=== PATIENT | female | born 1935 | race Caucasian/White ===

== ENCOUNTER 2017-12-10 11:09 | Day surgery (SDC) | payer MEDICARE, OTHER ==
[~2017-12-10 11:09] MED LIST: Betamethasone Acetate/Betamethasone Sod Phosphate 30 MG/5 ML MDV ONE; Iopamidol 408 MG/ML 50 ML SDV ONE; Lidocaine 2% 5 ML SDV ONE; Ropivacaine 0.5% 5 MG/ML 30 ML SDV ONE
--- NOTE | 2017-12-10 15:06 | OR ---
SURGEON: Amena Zee D.O. DATE OF PROCEDURE: 12/10/2017 OR STAFF PRESENT: 1. La Lomeli RN. 2. Adán York RN. 3. RT Michelle. WOUND CLASSIFICATION: I. PREOPERATIVE DIAGNOSES: 1. Lumbar spinal stenosis. 2. Lumbar spondylosis. 3. Lumbar degenerative disk disease. 4. Lumbar radiculopathy. POSTOPERATIVE DIAGNOSES: 1. Lumbar spinal stenosis. 2. Lumbar spondylosis. 3. Lumbar degenerative disk disease. 4. Lumbar radiculopathy. PROCEDURES PERFORMED: 1. Caudal epidural steroid injection. 2. Fluoroscopic guidance for needle placement. 3. Local with oral Valium for sedation. SCREENING QUESTIONS: The patient answered "no" to all of the following questions: 1. Are you allergic to latex? 2. Do you have a bleeding disorder? 3. Do you have any current local or systemic infections? 4. Are you taking any anti-inflammatories or blood thinners? 5. Do you have any joint replacements, heart valve replacements, or a pacemaker? DESCRIPTION OF PROCEDURE: The patient had the procedure thoroughly explained including all possible risks, benefits and alternatives. Consent was signed in my clinic indicating understanding and willingness to proceed. The patient presented to [facility] [place] and was escorted to the dressing room to disrobe and change into a hospital gown. Preoperative vital signs were taken and stable. The patient reported that Valium was taken prior to the procedure. The patient was brought back to the procedure room and placed in the prone position on the procedure room table. A pillow was placed under the hips in order to flatten the lumbar lordosis. The back was prepped with ChloraPrep and sterilely draped. All personnel in the operating room were dressed in appropriate attire including surgical scrubs, head and shoe covers. This was to ensure sterility while in the treatment room. During the time fluoroscopy was in use, all personnel in the operating room wore lead reese with thyroid collars. Sterile technique was used throughout the procedure. The patient was awake and conversant throughout the procedure. There was no evidence of infection at the site of needle insertion. Skeletal landmarks were identified under fluoroscopy for the lumbar epidural. Skin was anesthetized with 2% lidocaine with a sterile 27-gauge 1.5 inch needle. Then, a 20-gauge Tuohy epidural needle was placed in the epidural space with loss of resistance technique under fluoroscopic guidance. No heme, cerebrospinal fluid, or paresthesias were noted. Isovue-200 contrast dye was injected in 0.2 cubic centimeter increments and seen to outline the epidural space in both AP and lateral views. There was no intravascular flow pattern observed under live fluoroscopy. Then 12 milligrams of Celestone was slowly injected after negative aspiration. The patient tolerated the procedure well. Vital signs were stable during and after the procedure. The staff escorted the patient to the recovery area and the patient was released in stable condition after a brief stay in the recovery room monitored by the nurse. The patient was given both oral and written discharge and follow up instructions with recommendation to follow up given for 2-3 weeks. The patient voiced understanding including understanding of those signs and symptoms that would require emergency care. The patient knows how to contact the office if there are any additional problems or questions in the meantime. PREOPERATIVE PAIN: 5/10. POSTOPERATIVE PAIN: 0/10. PLAN: Follow up in the Pain Clinic in 3 weeks. LISA / LAWRENCE /[id number]
== END 2017-12-10 14:04 ==
LOC: MW.SDS 11:09
PROVIDERS: ATTEND Anesthesiology
DX: M51.37 Other intervertebral disc degeneration, lumbosacral region (principal); M48.061 Spinal stenosis, lumbar region without neurogenic claudication; M51.16 Intervertebral disc disorders with radiculopathy, lumbar region; M47.816 Spondylosis without myelopathy or radiculopathy, lumbar region; Z88.8 Allergy status to other drugs, medicaments and biological substances
CPT/HCPCS: 62323; J0702; J2795; Q9966

== ENCOUNTER 2018-01-28 11:25 | Day surgery (SDC) | payer MEDICARE, OTHER ==
[2018-01-28] MEDS ORDERED: Lidocaine 1% 0 ML ONE (12:08)
--- NOTE | 2018-01-28 16:22 | OR ---
SURGEON: Amena Zee D.O. DATE OF PROCEDURE: 01/28/2018 OR STAFF PRESENT: 1. Leland Lindsey RN. 2. Leland Poon RN. 3. RT Stephane. WOUND CLASSIFICATION: I. PREOPERATIVE DIAGNOSES: 1. Lumbar degenerative disk disease. 2. Lumbar spinal stenosis. 3. Lumbar spondylosis. POSTOPERATIVE DIAGNOSES: 1. Lumbar degenerative disk disease. 2. Lumbar spinal stenosis. 3. Lumbar spondylosis. PROCEDURES PERFORMED: 1. Caudal epidural steroid injection. 2. Fluoroscopic guidance for needle placement. 3. Local with oral Valium for sedation. SCREENING QUESTIONS: The patient answered "no" to all of the following questions: 1. Are you allergic to latex? 2. Do you have a bleeding disorder? 3. Do you have any current local or systemic infections? 4. Are you taking any anti-inflammatories or blood thinners? 5. Do you have any joint replacements, heart valve replacements, or a pacemaker? DESCRIPTION OF PROCEDURE: The patient had the procedure thoroughly explained including all possible risks, benefits and alternatives. Consent was signed in my clinic indicating understanding and willingness to proceed. The patient presented to [facility] [place] and was escorted to the dressing room to disrobe and change into a hospital gown. Preoperative vital signs were taken and stable. The patient reported that Valium was taken prior to the procedure. The patient was brought back to the procedure room and placed in the prone position on the procedure room table. A pillow was placed under the hips in order to flatten the lumbar lordosis. The back was prepped with ChloraPrep and sterilely draped. All personnel in the operating room were dressed in appropriate attire including surgical scrubs, head and shoe covers. This was to ensure sterility while in the treatment room. During the time fluoroscopy was in use, all personnel in the operating room wore lead reese with thyroid collars. Sterile technique was used throughout the procedure. The patient was awake and conversant throughout the procedure. There was no evidence of infection at the site of needle insertion. Skeletal landmarks were identified under fluoroscopy for the caudal epidural. Skin was anesthetized with 2% lidocaine with a sterile 27-gauge 1.5 inch needle. Then a 20-gauge Tuohy epidural needle was placed in the epidural space with loss of resistance technique under fluoroscopic guidance. No heme, cerebrospinal fluid, or paresthesias were noted. Isovue-200 contrast dye was injected in 0.2 cubic centimeter increments and seen to outline the epidural space in both AP and lateral views. There was no intravascular flow pattern observed under live fluoroscopy. Then 9 milligrams of Celestone was slowly injected after negative aspiration. The patient had some increased pain with injection therapy with increased blood pressure which resolved with stopping injection volume. Pain decreased and VVS and she reported pain improved from prior to injection. The staff escorted the patient to the recovery area and the patient was released in stable condition after a brief stay in the recovery room monitored by the nurse. The patient was given both oral and written discharge and follow up instructions with recommendation to follow up given for 2-3 weeks. The patient voiced understanding including understanding of those signs and symptoms that would require emergency care. The patient knows how to contact the office if there are any additional problems or questions in the meantime. PREOPERATIVE PAIN: 6/10. POSTOPERATIVE PAIN: 3/10. PLAN: Follow up in the Pain Clinic in 1 month. LISA / LAWRENCE /[id number] [place]UG[place]
== END 2018-01-28 14:05 | disposition home or self-care (01) ==
LOC: MW.SDS 11:25
PROVIDERS: ATTEND Anesthesiology
DX: G89.29 Other chronic pain (principal); M51.16 Intervertebral disc disorders with radiculopathy, lumbar region; M48.061 Spinal stenosis, lumbar region without neurogenic claudication; M47.816 Spondylosis without myelopathy or radiculopathy, lumbar region; M43.16 Spondylolisthesis, lumbar region; Z88.8 Allergy status to other drugs, medicaments and biological substances; Z79.899 Other long term (current) drug therapy
CPT/HCPCS: 62323; J0702; J2795; Q9966

== ENCOUNTER 2018-02-28 16:40 | Observation (INO) | payer MEDICARE, OTHER ==
[2018-02-28] MEDS ORDERED: Sodium Chloride 0.9% 10 ML Syringe FLUSH PRN (16:44)
[2018-02-28] MEDS ORDERED: Sodium Chloride 0.9% 2.5 ML Syringe FLUSH PRN (16:44)
--- NOTE | 2018-02-28 16:49 | EDM.PDOC ---
ED HPI GENERAL MEDICAL PROBLEM - General Chief Complaint: Neuro Symptoms/Deficits Stated Complaint: AMB Time Seen by Provider: 02/28/18 16:43 - History of Present Illness INITIAL COMMENTS - FREE TEXT/NARRATIVE: HISTORY AND PHYSICAL: History of present illness: The patient is an 82-year-old female who has a history of hypertension and chronic lower back pain who follows with Dr. Darrin Dumont in the clinic as well as our pain management clinic and presents with an episode of approximately 3 minutes of unresponsiveness and staring off into space while standing area according to the son they were in the garage doing activity and he was speaking with her and then noticed that she was not responding and she was just staring with a blank stare. She was standing at the time this happened and she did not fall to the ground. He thought that he saw some slight facial twitching but no other motor activity. This was very brief in duration and the patient's son called EMS. According to EMS she was slightly confused when she started to come around and the patient has no recall of these events. She currently says that she was having a normal day with no systemic complaints other than her chronic lower back pain for which she has a follow-up appointment with Dr. Zee. The patient states she has no headache no fevers no chills no cough chest pain or shortness of breath abdominal pain no nausea no vomiting or diarrhea and has been eating and drinking normally. She has no weakness or neurosensory tingling to her extremities. Review of systems: As per history of present illness and below otherwise all systems reviewed and negative. Past medical history: As per history of present illness and as reviewed below otherwise noncontributory. Surgical history: As per history of present illness and as reviewed below otherwise noncontributory. Social history: No reported history of drug or alcohol abuse. Family history: As per history of present illness and as reviewed below otherwise noncontributory. Physical exam: General: Well-developed well-nourished female who is speaking clearly and easily in the ED and vital signs are noted by me. She is moving all extremities and is nontoxic HEENT: Atraumatic, normocephalic, pupils reactive, negative for conjunctival pallor or scleral icterus, mucous membranes moist, throat clear, neck supple, nontender, trachea midline. There is no cervical adenopathy or nuchal rigidity Lungs: Clear to auscultation, breath sounds equal bilaterally, chest nontender. Heart: S1S2, regular in rhythm no overt murmur Abdomen: Soft, nondistended, nontender. Negative for masses or hepatosplenomegaly. NABS Pelvis: Stable nontender. 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: Deferred. Rectal: Deferred. Extremities: Atraumatic, negative for cords or calf pain. Neurovascular unremarkable. No pedal edema Neuro: Awake, alert, oriented. Cranial nerves II through XII unremarkable. Cerebellum unremarkable. Motor and sensory unremarkable throughout. Exam nonfocal. Dorsi and plantarflexion are intact 5/5 inclusive of the great toe. There is no drift. Speech is intact and there is no evidence of any facial droop. Diagnostics: EKG NIH SS CBC CMP INR troponin TSH UA CT scan of the head chest x-ray Therapeutics: IV O2 monitor aspirin NIHSS=0 CRL called me at 1709 p[address] to tell me that the CT head revealed no acute abnormalities 1804: TESTING results were discussed with the patient and son at bedside and the patient has agreed for observation admission I also discussed this case with Dr. Sol who accepts her for observation admission. Impression: Episode of unresponsiveness/altered mental status etiology unclear, rule out TIA Definitive disposition and diagnosis as appropriate pending reevaluation and review of above. - Related Data Home Meds: Home Meds Atenolol 1 tab PO DAILY 02/28/18 [History] Losartan Potassium [Cozaar] 1 tab PO DAILY 02/28/18 [History] Meloxicam 1 tab PO DAILY 02/28/18 [History] Triamterene/Hydrochlorothiazid [Triamterene-HCTZ 37.5-25 MG] 1 tab PO DAILY 09/17 [History] amLODIPine Besylate [Amlodipine Besylate] 10 mg PO DAILY 02/28/18 [History] traMADol [Ultram] 1 tab PO Q4H PRN 02/28/18 [History] ED ROS GENERAL - Review of Systems Review Of Systems: ROS reveals no pertinent complaints other than HPI. ED EXAM, GENERAL - Physical Exam Exam: See Below (See dictation) Course - Vital Signs Last Recorded V/S: Last Vital Signs Temp 36.6 C 02/28/18 16:44 Pulse 66 02/28/18 17:36 Resp 18 02/28/18 17:36 BP 158/89 H 02/28/18 17:36 Pulse Ox 96 02/28/18 17:36 - Orders/Labs/Meds Orders: Active Orders 24 hr Category Date Time Status Patient Status [ADT] Stat ADT 02/28/18 18:04 Ordered Blood Glucose Check, Bedside [RC] ONETIME Care 02/28/18 16:44 Active Cardiac Monitoring [RC] . DIRECTED Care 02/28/18 16:44 Active EKG Documentation Completion [RC] STAT Care 02/28/18 16:44 Active Oxygen Therapy, ED [RC] ASDIRECTED Care 02/28/18 16:44 Active Pulse Oximetry [RC] ASDIRECTED Care 02/28/18 16:44 Active Chest 1V Frontal [CR] Stat Exams 02/28/18 16:45 Taken Head wo Cont [CT] Stat Exams 02/28/18 16:44 Taken UA W/MICROSCOPIC [URIN] Stat Lab 02/28/18 17:10 Ordered Sodium Chloride 0.9% [Saline Flush] Med 02/28/18 16:44 Active 10 ml FLUSH ASDIRECTED PRN Sodium Chloride 0.9% [Saline Flush] Med 02/28/18 16:44 Active 2.5 ml FLUSH ASDIRECTED PRN Saline Lock Insert [OM.PC] Stat Oth 02/28/18 16:44 Ordered Medication Orders Sodium Chloride (Saline Flush) 10 ml FLUSH ASDIRECTED PRN PRN Reason: Keep Vein Open Sodium Chloride (Saline Flush) 2.5 ml FLUSH ASDIRECTED PRN PRN Reason: Keep Vein Open Labs: Laboratory Tests 02/28/18 02/28/18 02/28/18 Range/Units 17:06 17:06 17:06 WBC 6.28 (4.0-11.0) K/uL RBC 4.52 (4.30-5.90) M/uL Hgb 14.0 (12.0-16.0) g/dL Hct 41.2 (36.0-46.0) % MCV 91.2 (80.0-98.0) fL MCH 31.0 (27.0-32.0) pg MCHC 34.0 (31.0-37.0) g/dL RDW Std Deviation 44.6 (28.0-62.0) fl RDW Coeff of Mana 14 (11.0-15.0) % Plt Count 252 (150-400) K/uL MPV 8.90 (7.40-12.00) fL Neut % (Auto) 53.1 (48.0-80.0) % Lymph % (Auto) 30.6 (16.0-40.0) % [place] % (Auto) 12.9 (0.0-15.0) % Eos % (Auto) 2.9 (0.0-7.0) % Baso % (Auto) 0.5 (0.0-1.5) % Neut # (Auto) 3.3 (1.4-5.7) K/uL Lymph # (Auto) 1.9 (0.6-2.4) K/uL [place] # (Auto) 0.8 (0.0-0.8) K/uL Eos # (Auto) 0.2 (0.0-0.7) K/uL Baso # (Auto) 0.0 (0.0-0.1) K/uL Nucleated RBC % 0.0 /100WBC Nucleated RBCs # 0 K/uL INR 0.99 Sodium 132 L (136-145) mmol/L Potassium 4.1 (3.5-5.1) mmol/L Chloride 97 L (98-107) mmol/L Carbon Dioxide 25.7 (21.0-32.0) mmol/L BUN 17 (7.0-18.0) mg/dL Creatinine 0.8 (0.6-1.0) mg/dL Est Cr Clr Drug Dosing 47.95 mL/min Estimated GFR (MDRD) > 60.0 ml/min Glucose 104 (74-106) mg/dL POC Glucose (60-110) mg/dL Calcium 9.3 (8.5-10.1) mg/dL Total Bilirubin 0.3 (0.2-1.0) mg/dL AST 16 (15-37) IU/L ALT 21 (14-63) IU/L Alkaline Phosphatase 83 (46-116) U/L Troponin I < 0.050 (0.000-0.056) ng/mL Total Protein 7.5 (6.4-8.2) g/dL Albumin 3.8 (3.4-5.0) g/dL Globulin 3.7 H (2.0-3.5) g/dL Albumin/Globulin Ratio 1.0 L (1.3-2.8) TSH 3rd Generation 8.27 H (0.36-3.74) uIU/mL Urine Color Urine Appearance Urine pH (5.0-8.0) Ur Specific [place] (1.001-1.035) Urine Protein (NEGATIVE) mg/dL Urine Glucose (UA) (NEGATIVE) mg/dL Urine Ketones (NEGATIVE) mg/dL Urine Occult Blood (NEGATIVE) Urine Nitrite (NEGATIVE) Urine Bilirubin (NEGATIVE) Urine Urobilinogen (<2.0) EU/dL Ur Leukocyte Esterase (NEGATIVE) Urine RBC (0-2/HPF) Urine WBC (0-5/HPF) Ur Epithelial Cells (NONE-FEW) Amorphous Sediment (NEGATIVE) Urine Bacteria (NEGATIVE) 02/28/18 02/28/18 Range/Units 17:06 17:10 WBC (4.0-11.0) K/uL RBC (4.30-5.90) M/uL Hgb (12.0-16.0) g/dL Hct (36.0-46.0) % MCV (80.0-98.0) fL MCH (27.0-32.0) pg MCHC (31.0-37.0) g/dL RDW Std Deviation (28.0-62.0) fl RDW Coeff of Mana (11.0-15.0) % Plt Count (150-400) K/uL MPV (7.40-12.00) fL Neut % (Auto) (48.0-80.0) % Lymph % (Auto) (16.0-40.0) % [place] % (Auto) (0.0-15.0) % Eos % (Auto) (0.0-7.0) % Baso % (Auto) (0.0-1.5) % Neut # (Auto) (1.4-5.7) K/uL Lymph # (Auto) (0.6-2.4) K/uL [place] # (Auto) (0.0-0.8) K/uL Eos # (Auto) (0.0-0.7) K/uL Baso # (Auto) (0.0-0.1) K/uL Nucleated RBC % /100WBC Nucleated RBCs # K/uL INR Sodium (136-145) mmol/L Potassium (3.5-5.1) mmol/L Chloride (98-107) mmol/L Carbon Dioxide (21.0-32.0) mmol/L BUN (7.0-18.0) mg/dL Creatinine (0.6-1.0) mg/dL Est Cr Clr Drug Dosing mL/min Estimated GFR (MDRD) ml/min Glucose (74-106) mg/dL POC Glucose 91 (60-110) mg/dL Calcium (8.5-10.1) mg/dL Total Bilirubin (0.2-1.0) mg/dL AST (15-37) IU/L ALT (14-63) IU/L Alkaline Phosphatase (46-116) U/L Troponin I (0.000-0.056) ng/mL Total Protein (6.4-8.2) g/dL Albumin (3.4-5.0) g/dL Globulin (2.0-3.5) g/dL Albumin/Globulin Ratio (1.3-2.8) TSH 3rd Generation (0.36-3.74) uIU/mL Urine Color YELLOW Urine Appearance HAZY Urine pH 7.0 (5.0-8.0) Ur Specific [place] 1.015 (1.001-1.035) Urine Protein NEGATIVE (NEGATIVE) mg/dL Urine Glucose (UA) NEGATIVE (NEGATIVE) mg/dL Urine Ketones NEGATIVE (NEGATIVE) mg/dL Urine Occult Blood TRACE-INTACT (NEGATIVE) Urine Nitrite NEGATIVE (NEGATIVE) Urine Bilirubin NEGATIVE (NEGATIVE) Urine Urobilinogen 0.2 (<2.0) EU/dL Ur Leukocyte Esterase TRACE (NEGATIVE) Urine RBC 0-2 (0-2/HPF) Urine WBC 0-3 (0-5/HPF) Ur Epithelial Cells MODERATE (NONE-FEW) Amorphous Sediment LIGHT (NEGATIVE) Urine Bacteria FEW (NEGATIVE) Meds: Medications Generic Name Dose Route Start Last Admin Trade Name Freq PRN Reason Stop Dose Admin Sodium Chloride 10 ml 02/28/18 16:44 Saline Flush FLUSH ASDIRECTED PRN Keep Vein Open Sodium Chloride 2.5 ml 02/28/18 16:44 Saline Flush FLUSH ASDIRECTED PRN Keep Vein Open Discontinued Medications Generic Name Dose Route Start Last Admin Trade Name Freq PRN Reason Stop Dose Admin Aspirin 325 mg 02/28/18 17:17 02/28/18 17:46 Aspirin PO 02/28/18 17:18 325 mg ONETIME ONE Administration Departure - Departure Time of Disposition: 18:07 Disposition: Refer to Observation Condition: Good Clinical Impression: Altered mental status, unspecified Qualifiers: Altered mental status type: unspecified Qualified Code(s): R41.82 - Altered mental status, unspecified TIA (transient ischemic attack) Qualifiers: Transient cerebral ischemia type: unspecified Qualified Code(s): G45.9 - Transient cerebral ischemic attack, unspecified - Discharge Information Referrals: PCP,None [Primary Care Provider] - Forms: ED Department Discharge - My Orders Last 24 Hours: My Active Orders 02/28/18 16:44 Blood Glucose Check, Bedside [RC] ONETIME Cardiac Monitoring [RC] . DIRECTED EKG Documentation Completion [RC] STAT Oxygen Therapy, ED [RC] ASDIRECTED Pulse Oximetry [RC] ASDIRECTED Head wo Cont [CT] Stat Sodium Chloride 0.9% [Saline Flush] 10 ml FLUSH ASDIRECTED PRN Sodium Chloride 0.9% [Saline Flush] 2.5 ml FLUSH ASDIRECTED PRN Saline Lock Insert [OM.PC] Stat 02/28/18 16:45 Chest 1V Frontal [CR] Stat 02/28/18 17:10 UA W/MICROSCOPIC [URIN] Stat 02/28/18 18:04 Patient Status [ADT] Stat - Assessment/Plan Last 24 Hours: My Active Orders 02/28/18 16:44 Blood Glucose Check, Bedside [RC] ONETIME Cardiac Monitoring [RC] . DIRECTED EKG Documentation Completion [RC] STAT Oxygen Therapy, ED [RC] ASDIRECTED Pulse Oximetry [RC] ASDIRECTED Head wo Cont [CT] Stat Sodium Chloride 0.9% [Saline Flush] 10 ml FLUSH ASDIRECTED PRN Sodium Chloride 0.9% [Saline Flush] 2.5 ml FLUSH ASDIRECTED PRN Saline Lock Insert [OM.PC] Stat 02/28/18 16:45 Chest 1V Frontal [CR] Stat 02/28/18 17:10 UA W/MICROSCOPIC [URIN] Stat 02/28/18 18:04 Patient Status [ADT] Stat
[2018-02-28] MEDS ORDERED: Aspirin 325 MG Tab PO ONE (17:17)
[2018-02-28 17:42] LABS: CHLORIDE,CL 97 mmol/L (98-107); SODIUM,NA 132 mmol/L (136-145)
--- NOTE | 2018-02-28 19:57 | PCM.HP ---
H&P History of Present Illness - General Date of Service: 03/01/18 Admit Problem/Dx: Admission Diagnosis/Problem Admission Diagnosis/Problem Altered mental status - History of Present Illness Initial Comments - Free Text/Narative: 82 yo female with pmh of chronic back pain and hypertension who presents with brief episode of altered mental status. Patient was out in the garage when her son notice that she was staring blankly and not responding to him. She was standing and it lasted three minutes. Patient does not recall this episode or being lead in the house. But she does recall being in her house on a chair when the EMS came. Patient reports having a similar but shorted episode last month. Bilateral Lower Leg Pain Score (Numeric/FACES): 6 Lower Back Pain Score (Numeric/FACES): 6 - Related Data Allergies/Adverse Reactions: Allergies Allergy/AdvReac Type Severity Reaction Status Date / Time No Known Allergies Allergy Verified 02/28/18 22:52 Home Medications: Home Meds Acetaminophen [Tylenol Extra Strength] 1,000 mg PO Q4H PRN 02/28/18 [History] Atenolol 50 mg PO DAILY 02/28/18 [History] Losartan Potassium [Cozaar] 100 mg PO DAILY 02/28/18 [History] amLODIPine Besylate [Amlodipine Besylate] 10 mg PO BEDTIME 02/28/18 [History] Past Medical History Cardiovascular History: Reports: Hypertension Musculoskeletal History: Reports: Back Pain, Chronic Other Musculoskeletal History: Has spinal stenosis Social & Family History - Family History Family Medical History: Noncontributory - Tobacco Use Smoking Status *Q: Never Smoker - Caffeine Use Caffeine Use: Reports: Coffee - Recreational Drug Use Recreational Drug Use: No H&P Review of Systems - Review of Systems: Review Of Systems: ROS reveals no pertinent complaints other than HPI. Exam - Exam Exam: See Below - Vital Signs Vital Signs: Last Vital Signs Temp 36.3 C 02/28/18 18:30 Pulse 69 02/28/18 18:30 Resp 16 02/28/18 18:30 BP 186/104 H 02/28/18 18:30 Pulse Ox 95 02/28/18 18:30 Weight: 77.111 kg - Exam General: Alert, Oriented HEENT: Mucosa Moist & [place] Lungs: Clear to Auscultation Cardiovascular: Regular Rate, Regular Rhythm GI/Abdominal Exam: Normal Bowel Sounds, Soft, Non-Tender Extremities: Non-Tender, No Pedal Edema Skin: Warm, Dry, Intact Neurological: Cranial Nerves Intact, Reflexes Equal Bilateral. No: Focal Deficit Neuro Extensive - Mental Status: Normal Mood/Affect, Normal Cognition - Patient Data Lab Results Last 24 hrs: Laboratory Results - last 24 hr 02/28/18 02/28/18 02/28/18 Range/Units 17:06 17:06 17:06 WBC 6.28 (4.0-11.0) K/uL RBC 4.52 (4.30-5.90) M/uL Hgb 14.0 (12.0-16.0) g/dL Hct 41.2 (36.0-46.0) % MCV 91.2 (80.0-98.0) fL MCH 31.0 (27.0-32.0) pg MCHC 34.0 (31.0-37.0) g/dL RDW Std Deviation 44.6 (28.0-62.0) fl RDW Coeff of Mana 14 (11.0-15.0) % Plt Count 252 (150-400) K/uL MPV 8.90 (7.40-12.00) fL Neut % (Auto) 53.1 (48.0-80.0) % Lymph % (Auto) 30.6 (16.0-40.0) % [place] % (Auto) 12.9 (0.0-15.0) % Eos % (Auto) 2.9 (0.0-7.0) % Baso % (Auto) 0.5 (0.0-1.5) % Neut # (Auto) 3.3 (1.4-5.7) K/uL Lymph # (Auto) 1.9 (0.6-2.4) K/uL [place] # (Auto) 0.8 (0.0-0.8) K/uL Eos # (Auto) 0.2 (0.0-0.7) K/uL Baso # (Auto) 0.0 (0.0-0.1) K/uL Nucleated RBC % 0.0 /100WBC Nucleated RBCs # 0 K/uL INR 0.99 Sodium 132 L (136-145) mmol/L Potassium 4.1 (3.5-5.1) mmol/L Chloride 97 L (98-107) mmol/L Carbon Dioxide 25.7 (21.0-32.0) mmol/L BUN 17 (7.0-18.0) mg/dL Creatinine 0.8 (0.6-1.0) mg/dL Est Cr Clr Drug Dosing 47.95 mL/min Estimated GFR (MDRD) > 60.0 ml/min Glucose 104 (74-106) mg/dL POC Glucose (60-110) mg/dL Calcium 9.3 (8.5-10.1) mg/dL Total Bilirubin 0.3 (0.2-1.0) mg/dL AST 16 (15-37) IU/L ALT 21 (14-63) IU/L Alkaline Phosphatase 83 (46-116) U/L Troponin I < 0.050 (0.000-0.056) ng/mL Total Protein 7.5 (6.4-8.2) g/dL Albumin 3.8 (3.4-5.0) g/dL Globulin 3.7 H (2.0-3.5) g/dL Albumin/Globulin Ratio 1.0 L (1.3-2.8) TSH 3rd Generation 8.27 H (0.36-3.74) uIU/mL Urine Color Urine Appearance Urine pH (5.0-8.0) Ur Specific [place] (1.001-1.035) Urine Protein (NEGATIVE) mg/dL Urine Glucose (UA) (NEGATIVE) mg/dL Urine Ketones (NEGATIVE) mg/dL Urine Occult Blood (NEGATIVE) Urine Nitrite (NEGATIVE) Urine Bilirubin (NEGATIVE) Urine Urobilinogen (<2.0) EU/dL Ur Leukocyte Esterase (NEGATIVE) Urine RBC (0-2/HPF) Urine WBC (0-5/HPF) Ur Epithelial Cells (NONE-FEW) Amorphous Sediment (NEGATIVE) Urine Bacteria (NEGATIVE) 02/28/18 02/28/18 Range/Units 17:06 17:10 WBC (4.0-11.0) K/uL RBC (4.30-5.90) M/uL Hgb (12.0-16.0) g/dL Hct (36.0-46.0) % MCV (80.0-98.0) fL MCH (27.0-32.0) pg MCHC (31.0-37.0) g/dL RDW Std Deviation (28.0-62.0) fl RDW Coeff of Mana (11.0-15.0) % Plt Count (150-400) K/uL MPV (7.40-12.00) fL Neut % (Auto) (48.0-80.0) % Lymph % (Auto) (16.0-40.0) % [place] % (Auto) (0.0-15.0) % Eos % (Auto) (0.0-7.0) % Baso % (Auto) (0.0-1.5) % Neut # (Auto) (1.4-5.7) K/uL Lymph # (Auto) (0.6-2.4) K/uL [place] # (Auto) (0.0-0.8) K/uL Eos # (Auto) (0.0-0.7) K/uL Baso # (Auto) (0.0-0.1) K/uL Nucleated RBC % /100WBC Nucleated RBCs # K/uL INR Sodium (136-145) mmol/L Potassium (3.5-5.1) mmol/L Chloride (98-107) mmol/L Carbon Dioxide (21.0-32.0) mmol/L BUN (7.0-18.0) mg/dL Creatinine (0.6-1.0) mg/dL Est Cr Clr Drug Dosing mL/min Estimated GFR (MDRD) ml/min Glucose (74-106) mg/dL POC Glucose 91 (60-110) mg/dL Calcium (8.5-10.1) mg/dL Total Bilirubin (0.2-1.0) mg/dL AST (15-37) IU/L ALT (14-63) IU/L Alkaline Phosphatase (46-116) U/L Troponin I (0.000-0.056) ng/mL Total Protein (6.4-8.2) g/dL Albumin (3.4-5.0) g/dL Globulin (2.0-3.5) g/dL Albumin/Globulin Ratio (1.3-2.8) TSH 3rd Generation (0.36-3.74) uIU/mL Urine Color YELLOW Urine Appearance HAZY Urine pH 7.0 (5.0-8.0) Ur Specific [place] 1.015 (1.001-1.035) Urine Protein NEGATIVE (NEGATIVE) mg/dL Urine Glucose (UA) NEGATIVE (NEGATIVE) mg/dL Urine Ketones NEGATIVE (NEGATIVE) mg/dL Urine Occult Blood TRACE-INTACT (NEGATIVE) Urine Nitrite NEGATIVE (NEGATIVE) Urine Bilirubin NEGATIVE (NEGATIVE) Urine Urobilinogen 0.2 (<2.0) EU/dL Ur Leukocyte Esterase TRACE (NEGATIVE) Urine RBC 0-2 (0-2/HPF) Urine WBC 0-3 (0-5/HPF) Ur Epithelial Cells MODERATE (NONE-FEW) Amorphous Sediment LIGHT (NEGATIVE) Urine Bacteria FEW (NEGATIVE) Result Diagrams: 02/28/18 17:06 02/28/18 17:06 Problem List Initiated/Reviewed/Updated: Yes Orders Last 24hrs: Active Orders 24 hr Category Date Time Status Patient Status [ADT] Stat ADT 02/28/18 18:04 Active Blood Glucose Check, Bedside [RC] ONETIME Care 02/28/18 16:44 Active Cardiac Monitoring [RC] . DIRECTED Care 02/28/18 16:44 Active EKG Documentation Completion [RC] STAT Care 02/28/18 16:44 Active Oxygen Therapy [RC] PRN Care 02/28/18 19:53 Ordered Telemetry Monitoring [Cardiac Monitoring] [RC] Q8H Care 02/28/18 18:20 Active Up ad Beth [RC] ASDIRECTED Care 02/28/18 19:53 Ordered VTE/DVT Education [RC] PER UNIT ROUTINE Care 02/28/18 19:53 Ordered Vital Signs [RC] Q4H Care 02/28/18 19:53 Ordered Chest 1V Frontal [CR] Stat Exams 02/28/18 16:45 Taken Head wo Cont [CT] Stat Exams 02/28/18 16:44 Taken BASIC METABOLIC PANEL,BMP [CHEM] AM Lab 03/01/18 05:11 Ordered CBC WITH AUTO DIFF [HEME] AM Lab 03/01/18 05:11 Ordered UA W/MICROSCOPIC [URIN] Stat Lab 02/28/18 17:10 Ordered Acetaminophen [Tylenol] Med 02/28/18 19:53 Ordered 650 mg PO Q4H PRN Sodium Chloride 0.9% [Saline Flush] Med 02/28/18 16:44 Active 10 ml FLUSH ASDIRECTED PRN Sodium Chloride 0.9% [Saline Flush] Med 02/28/18 16:44 Active 2.5 ml FLUSH ASDIRECTED PRN Saline Lock Insert [OM.PC] Stat Oth 02/28/18 16:44 Ordered Sequential Compression Device [OM.PC] Per Unit Routine Oth 02/28/18 19:53 Ordered Resuscitation Status Routine Resus Stat 02/28/18 19:53 Ordered Medication Orders Sodium Chloride (Saline Flush) 10 ml FLUSH ASDIRECTED PRN PRN Reason: Keep Vein Open Sodium Chloride (Saline Flush) 2.5 ml FLUSH ASDIRECTED PRN PRN Reason: Keep Vein Open Assessment/Plan Comment:: 82 yo female admitted with a brief episode of altered mental status. She was monitored overnight on telemetry with no events. This morning she is requesting discharge. She was discharged home to have follow up with with Dr. Licea and Dr. Kay.
[2018-02-28] MEDS: Acetaminophen 325 MG Tab PO PRN (22:15)
[2018-03-01] MEDS: Acetaminophen 325 MG Tab PO PRN ×2 (04:03→08:11)
--- NOTE | 2018-03-01 19:02 | CT ---
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 Site : 1935 Study: CT Head STROKE PROTOCOL WO CONT [id number]/1/[id number] 4:56:03 PM Ordering Physician: Dat Bowen Final Report: INDICATION: PAIN, STROKE CODE. PT WAS TALKING TO SON TODAY AND ZONED OUT FOR 3- 4 MINS PER SON. DID NOT FALL AND NO LOC HISTORY: Altered mental status. Code stroke. COMPARISON: None. TECHNIQUE: CT of the brain. No intravenous contrast. Coronal/sagittal reconstruction images. FINDINGS: These images demonstrate no evidence for acute intracranial hemorrhage. There is no shift of midline structures. There is no mass effect. There is no hyperdense MCA sign. Basilar cisterns are patent. No abnormal extra-axial fluid collections. Caudate nuclei, colonic nuclei, lentiform nuclei, midbrain, mitzi, and cerebellum show no focal findings. No loss of corcoran-white matter differentiation is seen. There is diffuse cerebral/cerebellar volume loss, which is expected given the patient`s age. Mastoid air cells of both temporal bones are clear. Pterygoid plates are intact. Degenerative changes of the atlantoaxial joint. Bones of the skullbase and calvaria are intact. IMPRESSION: 1. There is no acute intracranial hemorrhage, shift of midline structures, or mass effect. 2. No hyperdense MCA sign. 3. No loss of corcoran-white matter differentiation on noncontrast head CT. 4. Report called to Dr. Daugherty, Emergency Department, 02/28/18, 1710 hours. Dictated by Leonardo Knott MD @ 02/28/2018 5:10:58 PM Please note that all CT scans at this facility use dose modulation, iterative reconstruction, and/or weight-based dosing when appropriate to reduce radiation dose to as low as reasonably achievable. Dictated by: Leonardo Knott MD @ 02/28/2018 17:11:05 (Electronic Signature) Report Signed by Proxy. AUGUSTINA
--- NOTE | 2018-03-01 19:04 | CR ---
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 Site : 1935 Study: XRay Chest [id number]/1/2018 4:57:47 PM Ordering Physician: Dat Bowen Final Report: INDICATION: stroke code INDICATION: Stroke code. TECHNIQUE: Chest 1 view. COMPARISON: None FINDINGS: Cardiovascular and mediastinum: Heart size and vasculature are normal in caliber and appearance. Mediastinum is within normal limits. Lungs and pleural space: Lungs are clear. No sign of infiltrate or mass. Mild blunting of the right lateral costophrenic sulcus. No pneumothorax. Bones and soft tissues: No significant findings. IMPRESSION: 1. No acute airspace disease. 2. Mild blunting of the right lateral costophrenic sulcus. This may represent a small right pleural effusion or pleural thickening. Dictated by Leonardo Knott MD @ 02/28/2018 5:33:05 PM Dictated by: Leonardo Knott MD @ 02/28/2018 17:33:12 (Electronic Signature) Report Signed by Proxy. [facility]
== END 2018-03-01 11:00 | disposition home or self-care (01) ==
LOC: MW.ED 16:40 → MW.MS 18:04
PROVIDERS: ADMIT Internal Medicine; ATTEND Internal Medicine
DX: R41.82 Altered mental status, unspecified (principal); I10 Essential (primary) hypertension; G89.29 Other chronic pain; M54.5 Low back pain; Z79.899 Other long term (current) drug therapy
CPT/HCPCS: 36415; 70450; 71045; 80053; 81001; 82962; 84443; 84484; 85025; 85610; 93005; 99285; A9270

== ENCOUNTER 2019-05-11 13:06 | Emergency (ER) | payer MEDICARE, OTHER ==
[2019-05-11] MEDS ORDERED: Diphtheria/Tetanus Toxoids,Adult (Td) 0.5 ML Syringe IM ONE (13:25)
[2019-05-11] MEDS ORDERED: Lidocaine/EPINEPHrine/Tetracaine Soln 1 ML TOP ONE (13:31)
--- NOTE | 2019-05-11 13:45 | EDM.PDOC ---
ED HPI GENERAL MEDICAL PROBLEM - General Chief Complaint: Trauma Stated Complaint: LIP INJURY Time Seen by Provider: 05/11/19 13:07 Source of Information: Reports: Patient History Limitations: Reports: No Limitations - History of Present Illness INITIAL COMMENTS - FREE TEXT/NARRATIVE: History of present illness: []Patient was at home in her bathroom and turned to rapidly and got caught up on her feet fell face forward hitting her lower lip on the bathroom tile floor. He denies any loss of consciousness, headache, neck pain, visual changes, numbness or tingling. Patient has a through and through lower lip laceration Review of systems: As per history of present illness and below otherwise all systems reviewed and negative. Past medical history: As per history of present illness and as reviewed below otherwise noncontributory. Surgical history: As per history of present illness and as reviewed below otherwise noncontributory. Social history: No reported history of drug or alcohol abuse. Family history: As per history of present illness and as reviewed below otherwise noncontributory. Physical exam: General: Well developed, well nourished in NAD HEENT: Atraumatic, normocephalic, pupils reactive, negative for conjunctival pallor or scleral icterus, mucous membranes moist, throat clear, neck supple, nontender, trachea midline. Lower lip laceration vermilion border is intact Lungs: Clear to auscultation, breath sounds equal bilaterally, chest nontender. Heart: S1S2, regular, negative for clicks, rubs, or JVD. Abdomen: NABS, Soft, nondistended, nontender. Negative for masses or hepatosplenomegaly. Negative for costovertebral tenderness. Pelvis: Stable nontender. 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: Deferred. Rectal: Deferred. Extremities: Atraumatic, negative for cords or calf pain. Neurovascular unremarkable. Neuro: Awake, alert, oriented. Cranial nerves II through XII unremarkable. Cerebellum unremarkable. Motor and sensory unremarkable throughout. Exam nonfocal. Skin:warm and dry Diagnostics: None Therapeutics: Lip laceration sutured, tetanus status updated ED Course: Stable Impression: Fall, lower lip laceration Prescriptions: None Plan: Sutures out in 5-7 days Definitive disposition and diagnosis as appropriate pending reevaluation and review of above. - Related Data Allergies Allergy/AdvReac Type Severity Reaction Status Date / Time No Known Allergies Allergy Verified 05/11/19 13:13 Home Meds: Home Meds Acetaminophen [Tylenol Extra Strength] 1,000 mg PO Q4H PRN 02/28/18 [History] Atenolol 50 mg PO DAILY 02/28/18 [History] Losartan Potassium [Cozaar] 100 mg PO DAILY 02/28/18 [History] amLODIPine Besylate [Amlodipine Besylate] 10 mg PO BEDTIME 02/28/18 [History] Past Medical History Cardiovascular History: Reports: Hypertension Respiratory History: Reports: None Gastrointestinal History: Reports: None 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 History: Reports: None [place]ER [place] SEINE History: Reports: Musculoskeletal History: Reports: Back Pain, Chronic Other Musculoskeletal History: Has spinal stenosis Neurological History: Reports: None Psychiatric History: Reports: None Endocrine/Metabolic History: Reports: None Immunologic History: Reports: None Oncologic (Cancer) History: Reports: None Dermatologic History: Reports: None - Infectious Disease History Infectious Disease History: Reports: Chicken Pox, Hepatitis A, Measles, Mumps - Past Surgical History HEENT Surgical History: Reports: Adenoidectomy, Tonsillectomy GI Surgical History: Reports: None Musculoskeletal Surgical History: Reports: Arthroscopic Knee Other Musculoskeletal Surgeries/Procedures:: bilateral knee replacement Social & Family History - Family History Family Medical History: Noncontributory - Tobacco Use Smoking Status *Q: Never Smoker Second Hand Smoke Exposure: No - Caffeine Use Caffeine Use: Reports: Coffee - Recreational Drug Use Recreational Drug Use: No Review of Systems - Review of Systems Review Of Systems: See Below ED EXAM, GENERAL - Physical Exam Exam: See Below ED TRAUMA PROCEDURES - Laceration/Wound Repair lip Lac/Wound Length In cm: 2.5 Appearance: Superficial, Subcutaneous Anesthetic Type: Topical Skin Prep: Saline Suture Size: 4-0 Repaired With: Vicryl Drain Placement: No Sterile Dressing Applied: None Tetanus Status Addressed: Yes Complications: No Course - Vital Signs Last Recorded V/S: Last Vital Signs Temp 97.5 F 05/11/19 13:14 Pulse 60 05/11/19 13:14 Resp 16 05/11/19 13:14 BP 219/74 H 05/11/19 13:14 Pulse Ox 97 05/11/19 13:14 - Orders/Labs/Meds Orders: Active Orders 24 hr Category Date Time Status Vaccines to be Administered [RC] PER UNIT ROUTINE Care 05/11/19 13:25 Active Meds: Medications Discontinued Medications Generic Name Dose Route Start Last Admin Trade Name Susan PRN Reason Stop Dose Admin Lidocaine/Tetracaine 1 ml 05/11/19 13:31 Let Soln TOP 05/11/19 13:32 ONETIME ONE Tetanus/Diphtheria Toxoids 0.5 ml 05/11/19 13:25 Tenivac IM 05/11/19 13:26 .ONCE ONE Departure - Departure Time of Disposition: 14:01 Disposition: Home, Self-Care 01 Condition: Good Clinical Impression: Fall Qualifiers: Encounter type: initial encounter Qualified Code(s): W19.XXXA - Unspecified fall, initial encounter Lip laceration Qualifiers: Encounter type: initial encounter Qualified Code(s): S01.511A - Laceration without foreign body of lip, initial encounter - Discharge Information *PRESCRIPTION DRUG MONITORING PROGRAM REVIEWED*: No *COPY OF PRESCRIPTION DRUG MONITORING REPORT IN PATIENT ANNAMARIA: No Referrals: PCP,Unknown [Primary Care Provider] - Forms: ED Department Discharge Additional Instructions: The following information is given to patients seen in the emergency department who are being discharged to home. This information is to outline your options for follow-up care. We provide all patients seen in our emergency department with a follow-up referral. The need for follow-up, as well as the timing and circumstances, are variable depending upon the specifics of your emergency department visit. If you don't have a primary care physician on staff, we will provide you with a referral. We always advise you to contact your personal physician following an emergency department visit to inform them of the circumstance of the visit and for follow-up with them and/or the need for any referrals to a consulting specialist. The emergency department will also refer you to a specialist when appropriate. This referral assures that you have the opportunity for follow-up care with a specialist. All of these measure are taken in an effort to provide you with optimal care, which includes your follow-up. Under all circumstances we always encourage you to contact your private physician who remains a resource for coordinating your care. When calling for follow-up care, please make the office aware that this follow-up is from your recent emergency room visit. If for any reason you are refused follow-up, please contact the [facility] Emergency Department at and asked to speak to the emergency department charge nurse. Take meds as directed, follow up with your primary care physician, return to ER if symptoms worsen or change. [facility] [address] [place] [id number] - My Orders Last 24 Hours: My Active Orders 05/11/19 13:25 Vaccines to be Administered [RC] PER UNIT ROUTINE - Assessment/Plan Last 24 Hours: My Active Orders 05/11/19 13:25 Vaccines to be Administered [RC] PER UNIT ROUTINE
== END 2019-05-11 14:15 | disposition home or self-care (01) ==
LOC: MW.ED 13:06
DX: S01.511A Laceration without foreign body of lip, initial encounter (principal); I10 Essential (primary) hypertension; Z23 Encounter for immunization; Z98.890 Other specified postprocedural states; Z79.899 Other long term (current) drug therapy; Z96.653 Presence of artificial knee joint, bilateral; W01.198A Fall on same level from slipping, tripping and stumbling with subsequent striking against other object, initial encounter; Y92.009 Unspecified place in unspecified non-institutional (private) residence as the place of occurrence of the external cause
CPT/HCPCS: 90471; 90714; 99282

== ENCOUNTER 2020-02-02 18:11 | Emergency (ER) | payer MEDICARE, OTHER ==
[2020-02-02] MEDS ORDERED: Lidocaine 1% with EPINEPHrine 1:100,000 20 ML MDV ONE (18:14)
[2020-02-02] MEDS ORDERED: Sodium Chloride 0.9% 10 ML Syringe FLUSH PRN (18:18)
[2020-02-02] MEDS ORDERED: Sodium Chloride 0.9% 2.5 ML Syringe FLUSH PRN (18:18)
[2020-02-02] MEDS ORDERED: Lidocaine 1% with EPINEPHrine 1:100,000 20 ML MDV INJECT ONE (18:21)
--- NOTE | 2020-02-02 18:31 | EDM.PDOC ---
ED [facility] GENERAL MEDICAL PROBLEM - General Chief Complaint: Head Injury Stated Complaint: EMS ARRIVAL - FALL Time Seen by Provider: 02/02/20 18:11 - History of Present Illness INITIAL COMMENTS - FREE TEXT/NARRATIVE: Basic note HISTORY AND PHYSICAL: History of present illness: This 84-year-old female was trying to walk up her steps after watering in her yard when she had an episode of dizziness/lightheadedness and fell backwards down 3 steps onto her back of her head. She did have a loss of consciousness unclear how long. Paramedics report it was quite significant amount of time. The patient remembers being outside watering and then losing her balance and then remembers waking up on the concrete. She complains of occipital head pain. There is a laceration there. Paramedics have covered it. Review of systems: A 10-point review of systems, other than pertinent positives and negatives as stated per HPI, is otherwise negative. Past medical history: As per history of present illness and as reviewed below otherwise noncontributory. Surgical history: As per history of present illness and as reviewed below otherwise noncontributory. Social history: No reported history of drug or alcohol abuse. Family history: As per history of present illness and as reviewed below otherwise noncontributory. Physical exam: VITAL SIGNS: Reviewed. GENERAL: Found on bridge expert gurviral in cervical spine collar. Her head is wrapped. There is bloody dressing on the occiput. HEAD: There is a large stellate laceration with hematoma on the back of the head. Occipital. I do not feel step-off. There is some brisk bleeding. EYES: Pupils are equal. Extraocular motions intact. EARS: Hearing grossly intact. MOUTH: Oropharynx is normal. NECK: No adenopathy, no JVD. No midline cervical tenderness CHEST: Chest with clear breath sounds bilaterally. No wheezes, rales, or rhonchi. CARDIAC: Regular rate and rhythm. Normal S1 and S2, without murmurs, gallops, or rubs. VASCULAR: Peripheral pulses normal and equal in all extremities. ABDOMEN: Soft, without detectable tenderness. No sign of distention. No rebound or guarding, and no masses palpated. MUSCULOSKELETAL: Good range of motion of all major joints. Extremities without clubbing, cyanosis or edema. NEUROLOGIC EXAM: Eye-opening is to voice, oriented, obeys commands, Michael Coma Scale is 14. Speech normal. PSYCHIATRIC: Mood normal. SKIN: No rash or lesions. Initial Differential Diagnosis & Plan: Intracranial hemorrhage, skull fracture, laceration with hematoma, cervical spine injury I will obtain CT of the head, cervical spine, labs including INR and PTT, type and screen. Definitive disposition and diagnosis as appropriate pending reevaluation and review of above. Laceration to back of the head Pain Score (Numeric/FACES): 8 - Related Data Allergies Allergy/AdvReac Type Severity Reaction Status Date / Time No Known Allergies Allergy Verified 05/11/19 13:13 Home Meds: Home Meds Acetaminophen [Tylenol Extra Strength] 1,000 mg PO Q4H PRN 02/28/18 [History] Losartan Potassium [Cozaar] 100 mg PO DAILY 02/28/18 [History] amLODIPine Besylate [Amlodipine Besylate] 10 mg PO BEDTIME 02/28/18 [History] atenoloL [Atenolol] 50 mg PO DAILY 02/28/18 [History] Past Medical History Cardiovascular History: Reports: Hypertension Respiratory History: Reports: None Gastrointestinal History: Reports: None 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 History: Reports: None [employer] History: Reports: Musculoskeletal History: Reports: Back Pain, Chronic Other Musculoskeletal History: Has spinal stenosis Neurological History: Reports: None Psychiatric History: Reports: None Endocrine/Metabolic History: Reports: None Immunologic History: Reports: None Oncologic (Cancer) History: Reports: None Dermatologic History: Reports: None - Infectious Disease History Infectious Disease History: Reports: Chicken Pox, Hepatitis A, Measles, Mumps - Past Surgical History HEENT Surgical History: Reports: Adenoidectomy, Tonsillectomy GI Surgical History: Reports: None Musculoskeletal Surgical History: Reports: Arthroscopic Knee Other Musculoskeletal Surgeries/Procedures:: bilateral knee replacement Social & Family History - Family History Family Medical History: Noncontributory - Caffeine Use Caffeine Use: Reports: Coffee ED ROS GENERAL - Review of Systems Review Of Systems: See Below (noted) ED EXAM, HEAD INJURY - Physical Exam Exam: See Below (noted) ED LACERATION/WOUND & RAUL PROC - Additional/Other Procedure(s) Other (Free Text) Procedure(s): 1815 hrs. I unwrapped the wound and found that there was still brisk bleeding from the hematoma and is a large stellate laceration. Difficult to tell how large at this point. I irrigated the area with saline and injected 20 mL's of lidocaine with epinephrine for anesthesia and help with hemorrhage control. I placed a dressing on this but will send her to CT because I am worried she has intracranial hemorrhage. Course - Orders/Labs/Meds Orders: Active Orders 24 hr Category Date Time Status EKG 12 Lead [EKG Documentation Completion] [RC] STAT Care 02/02/20 18:18 Active Cervical Spine wo Cont [CT] Stat Exams 02/02/20 18:18 Taken Chest 1V Frontal [CR] Stat Exams 02/02/20 18:18 Taken Head wo Cont [CT] Stat Exams 02/02/20 18:18 Taken Pelvis 1V or 2V [CR] Stat Exams 02/02/20 18:18 Taken COMPREHENSIVE METABOLIC PN,CMP [CHEM] Stat Lab 02/02/20 18:17 Received TYPE AND SCREEN [BBK] Stat Lab 02/02/20 18:17 Received UA RFX THIAGO AND CULT IF INDIC [URIN] Stat Lab 02/02/20 18:18 Ordered Sodium Chloride 0.9% [Saline Flush] Med 02/02/20 18:18 Active 10 ml FLUSH ASDIRECTED PRN Sodium Chloride 0.9% [Saline Flush] Med 02/02/20 18:18 Active 2.5 ml FLUSH ASDIRECTED PRN Saline Lock Insert [OM.PC] Stat Oth 02/02/20 18:18 Ordered Medication Orders Sodium Chloride (Saline Flush) 10 ml FLUSH ASDIRECTED PRN PRN Reason: Keep Vein Open Sodium Chloride (Saline Flush) 2.5 ml FLUSH ASDIRECTED PRN PRN Reason: Keep Vein Open Labs: Laboratory Tests 02/02/20 02/02/20 Range/Units 18:17 18:17 WBC 6.46 (4.0-11.0) K/uL RBC 4.13 L (4.30-5.90) M/uL Hgb 12.5 (12.0-16.0) g/dL Hct 37.1 (36.0-46.0) % MCV 89.8 (80.0-98.0) fL MCH 30.3 (27.0-32.0) pg MCHC 33.7 (31.0-37.0) g/dL RDW Std Deviation 42.6 (28.0-62.0) fl RDW Coeff of Mana 13 (11.0-15.0) % Plt Count 296 (150-400) K/uL MPV 9.10 (7.40-12.00) fL Neut % (Auto) 50.0 (48.0-80.0) % Lymph % (Auto) 32.8 (16.0-40.0) % [place] % (Auto) 12.4 (0.0-15.0) % Eos % (Auto) 4.5 (0.0-7.0) % Baso % (Auto) 0.3 (0.0-1.5) % Neut # (Auto) 3.2 (1.4-5.7) K/uL Lymph # (Auto) 2.1 (0.6-2.4) K/uL [place] # (Auto) 0.8 (0.0-0.8) K/uL Eos # (Auto) 0.3 (0.0-0.7) K/uL Baso # (Auto) 0.0 (0.0-0.1) K/uL Nucleated RBC % 0.0 /100WBC Nucleated RBCs # 0 K/uL INR 1.03 Meds: Medications Generic Name Dose Route Start Last Admin Trade Name Freq PRN Reason Stop Dose Admin Sodium Chloride 10 ml 02/02/20 18:18 Saline Flush FLUSH ASDIRECTED PRN Keep Vein Open Sodium Chloride 2.5 ml 02/02/20 18:18 Saline Flush FLUSH ASDIRECTED PRN Keep Vein Open Discontinued Medications Generic Name Dose Route Start Last Admin Trade Name Freq PRN Reason Stop Dose Admin Lidocaine/Epinephrine Confirm 02/02/20 18:14 Xylocaine 1% With Epinephrine 1:100,000 Administered 02/02/20 18:15 Dose 20 ml .ROUTE .STK-MED ONE Lidocaine/Epinephrine 20 ml 02/02/20 18:21 Xylocaine 1% With Epinephrine 1:100,000 INJECT 02/02/20 18:22 ONETIME ONE - Re-Assessments/Exams Free Text/Narrative Re-Assessment/Exam: 02/02/20 18:56 At this time I am signing out care colleague Dr. King, and he will be excepting care of this patient follow-up with the films, laceration repair and disposition. My diagnostic impression: 1. Fall with head injury 2. Occipital head laceration Departure - Departure Time of Disposition: 18:58 Disposition: Still A Patient 30 Clinical Impression: Scalp laceration - Discharge Information Forms: ED Department Discharge Sepsis Event Note - Focused Exam Date Exam was Performed: 02/02/20 Time Exam was Performed: 18:56
[2020-02-02 19:00] LABS: BLOOD UREA NITROGEN,BUN 20 mg/dL (7.0-18.0); CARBON DIOXIDE,CO2 25.7 mmol/L (21.0-32.0); CHLORIDE,CL 92 mmol/L (98-107); GLUCOSE RANDOM 125 mg/dL (74-106); POTASSIUM,K 3.8 mmol/L (3.5-5.1); SODIUM,NA 128 mmol/L (136-145)
--- NOTE | 2020-02-02 19:02 | CT ---
INDICATION: Fall, head injury TECHNIQUE: Head CT without contrast. COMPARISON: None FINDINGS: CSF spaces: Within normal limits for age. Brain parenchyma: There are nonspecific low attenuation white matter changes consistent with chronic microvascular disease. No sign of mass, hemorrhage, or midline shift. Skull base and calvarium: The visualized paranasal sinuses and mastoid air cells demonstrate no acute or significant findings. The visualized orbits are grossly unremarkable. No skull fractures. There is intracranial atherosclerosis. Left posterior scalp contusion and laceration. IMPRESSION: No intracranial hemorrhage or skull fracture. Left posterior scalp contusion and laceration. Please note that all CT scans at this facility use dose modulation, iterative reconstruction, and/or weight-based dosing when appropriate to reduce radiation dose to as low as reasonably achievable. Dictated by Meera Taylor MD @ Feb 02 2020 6:55PM Signed by Dr. Meera Taylor @ Feb 02 2020 7:01PM
--- NOTE | 2020-02-02 19:07 | CT ---
INDICATION: Fall TECHNIQUE: CT cervical spine without contrast. COMPARISON: None FINDINGS: Vertebral alignment: Alignment is normal. Vertebrae: There are no fractures or suspicious bony lesions. Discs and facet joints: There are moderate to severe multilevel degenerative disc and facet changes. Extraspinal findings: Paraspinous soft tissues are unremarkable. IMPRESSION: 1. No sign of acute injury. 2. Multilevel degenerative spondylosis. Please note that all CT scans at this facility use dose modulation, iterative reconstruction, and/or weight-based dosing when appropriate to reduce radiation dose to as low as reasonably achievable. Dictated by Meera Taylor MD @ Feb 02 2020 7:01PM Signed by Dr. Meera Taylor @ Feb 02 2020 7:04PM
--- NOTE | 2020-02-02 19:13 | CR ---
Indication: Fall Technique: Chest 1 view Comparison: February 28, 2018 Findings/Impression: Stable cardiac size. Normal pulmonary vasculature. No effusion, pneumothorax, or focal infiltrate. No acute osseous abnormality. Dictated by Meera Taylor MD @ Feb 02 2020 7:11PM Signed by Dr. Meera Taylor @ Feb 02 2020 7:11PM
--- NOTE | 2020-02-02 19:15 | CR ---
Indication: Fall Technique: Frontal view pelvis Comparison: None Findings: Bones: Osteopenia. Irregularity of the medial aspect of the right superior pubic ramus. Joint spaces: Unremarkable. Soft tissues: Unremarkable. Impression: Irregularity of the medial aspect of the right superior pubic ramus. If the patient has pelvic pain or tenderness, recommend pelvic CT for further evaluation. Dictated by Meera Taylor MD @ Feb 02 2020 7:11PM Signed by Dr. Meera Taylor @ Feb 02 2020 7:12PM
[2020-02-02] MEDS ORDERED: Acetaminophen/HYDROcodone 325-5 MG Tab PO ONE (19:31)
--- NOTE | 2020-02-02 20:20 | CT ---
INDICATION: Pelvic injury from fall TECHNIQUE: CT pelvis without i.v. contrast. Coronal and sagittal reformats were obtained. COMPARISON: Radiograph today FINDINGS: Bone: No acute fractures or aggressive bone lesions are identified. There is a corticated, comminuted chronic fracture deformity in the right parasymphyseal region. Grade 1 anterolisthesis of L4-5 is present with broad base disc protrusion contributing to central canal stenosis. Severe degenerative disc disease is partially visualized at L3-4 and at L5-S1. Joint: The hip joint is unremarkable. No significant hip effusion is seen. The visualized sacroiliac joints are unremarkable in appearance. The pubic symphysis is normal in appearance. Soft tissue: Unremarkable. Moderate diverticulosis of the sigmoid colon is present. A moderate amount of stool is present in the rectal vault. Moderate diffuse atherosclerotic calcifications of the abdominal aorta and its tributaries are present. No radiopaque foreign bodies are seen. There is a 2.2 cm low-density lesion in the lower pole of the right kidney which is likely a cyst but incompletely characterized. IMPRESSION: 1. No acute osseous injuries or abnormalities are noted. Dictated by Franki Devi MD @ 02/02/2020 8:18:27 PM Please note that all CT scans at this facility use dose modulation, iterative reconstruction, and/or weight-based dosing when appropriate to reduce radiation dose to as low as reasonably achievable. Dictated by: Franki Devi MD @ 02/02/2020 20:18:38 (Electronically Signed)
== END 2020-02-02 21:45 | disposition home or self-care (01) ==
LOC: MW.ED 18:11
DX: S06.9X9A Unspecified intracranial injury with loss of consciousness of unspecified duration, initial encounter (principal); S01.01XA Laceration without foreign body of scalp, initial encounter; I10 Essential (primary) hypertension; Z79.899 Other long term (current) drug therapy; W19.XXXA Unspecified fall, initial encounter; Y92.096 Garden or yard of other non-institutional residence as the place of occurrence of the external cause
CPT/HCPCS: 12002; 36415; 70450; 71045; 72125; 72170; 72192; 80053; 85025; 85610; 86850; 86900; 86901; 93005; 99285; A9270; 99283

== ENCOUNTER 2020-02-06 13:48 | Observation (INO) | payer MEDICARE, OTHER ==
[2020-02-06] MEDS ORDERED: Sodium Chloride 0.9% 2.5 ML Syringe FLUSH PRN ×2 (13:50→16:33)
[2020-02-06] MEDS ORDERED: Sodium Chloride 0.9% 10 ML Syringe FLUSH PRN (13:50)
[2020-02-06] MEDS ORDERED: Sodium Chloride 0.9% 10 ML SDV IV PRN (13:50)
--- NOTE | 2020-02-06 13:57 | EDM.PDOC ---
ED HPI GENERAL MEDICAL PROBLEM - General Chief Complaint: General Stated Complaint: FALL Time Seen by Provider: 02/06/20 13:50 Source of Information: Reports: Patient History Limitations: Reports: No Limitations - History of Present Illness INITIAL COMMENTS - FREE TEXT/NARRATIVE: HISTORY AND PHYSICAL: History of present illness: Patient is an 84-year-old female who presents to the emergency room with complaints of dizziness. Patient was seen in the emergency department on 2019 after an episode of dizziness in which she fell backwards hitting her posterior scalp. She did have prabhakar placed to the posterior occipital laceration. Head CT that was done showed no intracranial hemorrhage or skull fracture. Left posterior scalp contusion and laceration was noted. Patient had imaging, lab EKG. Lab work was unremarkable. There was some concern on a pelvis that showed a potential fracture to the left pubic rami although she was not tender. Patient was deemed stable enough to be discharged to home. She states since going home she has had intermittent episodes of dizziness where she is concerned that she is going to fall. Today when she woke up she noticed just sitting on the edge of the bed she did have increased dizziness and was fearful to walk around. She notices symptoms more when she has to turn her head to the left, look down or bend over. Patient denies any fever, chills, headache, change in vision, syncope or near syncope. Denies any chest pain, back pain, shortness of breath or cough. Denies any abdominal pain, nausea, vomiting, diarrhea, constipation or dysuria. Has not noted any blood in urine or stool. Patient has been eating and drinking appropriately. No new falls since coming to the emergency room on 02/01. Review of systems: As per history of present illness and below otherwise all systems reviewed and negative. Past medical history: As per history of present illness and as reviewed below otherwise noncontributory. Surgical history: As per history of present illness and as reviewed below otherwise noncontributory. Social history: See social history for further information Family history: As per history of present illness and as reviewed below otherwise noncontributory. Physical exam: General: Well-developed and well-nourished 84-year-old female. Alert and oriented. Nontoxic-appearing and in no acute distress. HEENT: No new injury - head injury on 02/02/2020 with scalp laceration repair with prabhakar. Mild tenderness at scalp injury site. She is normocephalic, pupils equal and reactive bilaterally, negative for conjunctival pallor or scleral icterus, no nystagmus noted, mucous membranes moist, TMs normal bilaterally, throat clear, neck supple, nontender, trachea midline. No drooling or trismus noted. No meningeal signs. No hot potato voice noted. Lungs: Clear to auscultation, breath sounds equal bilaterally, chest nontender. Heart: S1S2, regular rate and rhythm without overt murmur Abdomen: Soft, nondistended, nontender. Negative for masses or hepatosplenomegaly. Negative for costovertebral tenderness. Pelvis: Stable nontender. Skin: SEE HEENT. Otherwise remaining skin is intact, warm, dry. No lesions or rashes noted. Extremities: Atraumatic, moves all extremities per self without difficulty or deficits, negative for cords or calf pain. Neurovascular unremarkable. Neuro: Awake, alert, oriented. Cranial nerves II through XII unremarkable. Cerebellum unremarkable. Motor and sensory unremarkable throughout. Exam nonfocal. Notes: Patient's blood pressure is elevated, she states she has taken her morning medications and does monitor this routinely at home with her usual BP running 140s/80s. EKG done 1419: Shows sinus rhythm with a rate of 60, comparing this to the EKG that was done on 02/02/20 she does have flipped T waves in lead III and spiked T waves in V3 and V4. Lab work is unremarkable, slight decrease in the hemoglobin and hematocrit although not concerning. Chest x-ray shows no acute findings. Head CT shows no acute intracranial abnormality. The soft tissue hematoma of the posterior scalp is still noted. Patient's blood pressure has improved although it is still elevated. Nursing staff did attempt to get her up to ambulate and she was very unsteady on her feet and did complain again of dizziness. Dr Sher/David was consulted on this case and he will come down to evaluate the patient for possible admission. Patient will stay for observation admission with telemetry. Diagnostics: CBC, CMP, UA, troponin, EKG, head CT, orthostatic vital signs Therapeutics: LR @100mls/hr Impression: Post-Concussion Dizziness Plan: Observation admission to Med/Surg Definitive disposition and diagnosis as appropriate pending reevaluation and review of above. - Related Data Allergies Allergy/AdvReac Type Severity Reaction Status Date / Time No Known Allergies Allergy Verified 02/06/20 14:08 Home Meds: Home Meds Acetaminophen [Tylenol Extra Strength] 1,000 mg PO Q4H PRN 02/28/18 [History] Losartan Potassium [Cozaar] 100 mg PO DAILY 02/28/18 [History] amLODIPine Besylate [Amlodipine Besylate] 10 mg PO BEDTIME 02/28/18 [History] atenoloL [Atenolol] 50 mg PO DAILY 02/28/18 [History] Past Medical History Cardiovascular History: Reports: Hypertension Respiratory History: Reports: None Gastrointestinal History: Reports: None 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 History: Reports: None [employer] History: Reports: Musculoskeletal History: Reports: Back Pain, Chronic Other Musculoskeletal History: Has spinal stenosis Neurological History: Reports: None Psychiatric History: Reports: None Endocrine/Metabolic History: Reports: None Immunologic History: Reports: None Oncologic (Cancer) History: Reports: None Dermatologic History: Reports: None - Infectious Disease History Infectious Disease History: Reports: Chicken Pox, Hepatitis A, Measles, Mumps - Past Surgical History HEENT Surgical History: Reports: Adenoidectomy, Tonsillectomy GI Surgical History: Reports: None Musculoskeletal Surgical History: Reports: Arthroscopic Knee Other Musculoskeletal Surgeries/Procedures:: bilateral knee replacement Social & Family History - Family History Family Medical History: Noncontributory - Caffeine Use Caffeine Use: Reports: Coffee ED ROS GENERAL - Review of Systems Review Of Systems: Comprehensive ROS is negative, except as noted in HPI. ED EXAM, GENERAL - Physical Exam Exam: See Below (See dictation) Course - Vital Signs Last Recorded V/S: Last Vital Signs Temp 97.3 F 02/06/20 14:04 Pulse 59 L 02/06/20 15:37 Resp 16 02/06/20 14:04 BP 187/79 H 02/06/20 15:37 Pulse Ox 91 L 02/06/20 15:37 Orthostatic Blood Pressure [ 171/72 Standing] Orthostatic Blood Pressure [ 174/80 Sitting] Orthostatic Blood Pressure [ 176/76 Supine] - Orders/Labs/Meds Orders: Active Orders 24 hr Category Date Time Status Admission Status [Patient Status] [ADT] Stat ADT 02/06/20 16:13 Active Assess Neurological Status [RC] ASDIRECTED Care 02/06/20 13:50 Inactive Bedrest [RC] ASDIRECTED Care 02/06/20 13:50 Inactive Blood Glucose Check, Bedside [RC] STAT Care 02/06/20 13:51 Inactive Cardiac Monitoring [RC] . DIRECTED Care 02/06/20 13:50 Inactive Cardiac Monitoring [RC] . DIRECTED Care 02/06/20 16:13 Active EKG Documentation Completion [RC] STAT Care 02/06/20 13:50 Active Height and Weight [RC] UPON Care 02/06/20 13:50 Inactive Initiate Acute Stroke Protocol [RC] STAT Care 02/06/20 13:50 Inactive NIH Stroke Scale [RC] ASDIRECTED Care 02/06/20 13:50 Inactive Nursing Bedside Swallow Screen [RC] ASDIRECTED Care 02/06/20 13:50 Inactive Orthostatic Vital Signs [RC] ASDIRECTED Care 02/06/20 13:59 Active Oxygen Therapy [RC] ASDIRECTED Care 02/06/20 13:50 Inactive Stroke Education, General [RC] Click to Edit Care 02/06/20 13:50 Inactive Telemetry Monitoring [Cardiac Monitoring] [RC] . Care 02/06/20 16:16 Active DIRECTED Vital Signs [RC] Q4H Care 02/06/20 13:50 Active Acetaminophen [Tylenol Extra Strength] Med 02/06/20 16:17 Active 1,000 mg PO Q4H PRN Doxazosin [Cardura] Med 02/06/20 21:00 Active 4 mg PO BEDTIME Lactated Ringers [Ringers, Lactated] 1,000 ml Med 02/06/20 14:30 Active IV ASDIRECTED Losartan [Cozaar] Med 02/07/20 09:00 Active 100 mg PO DAILY Sodium Chloride 0.9% [Normal Saline] Med 02/06/20 13:50 Active 10 ml IV ASDIRECTED PRN Sodium Chloride 0.9% [Saline Flush] Med 02/06/20 13:50 Active 10 ml FLUSH ASDIRECTED PRN Sodium Chloride 0.9% [Saline Flush] Med 02/06/20 13:50 Active 2.5 ml FLUSH ASDIRECTED PRN amLODIPine Besylate Med 02/06/20 21:00 Active 10 mg PO BEDTIME atenoloL [Tenormin] Med 02/07/20 09:00 Active 50 mg PO DAILY carBAMazepine [TEGretol XR] Med 02/06/20 21:00 Active 100 mg PO BEDTIME carBAMazepine [TEGretol XR] Med 02/07/20 09:00 Active 50 mg PO DAILY Resuscitation Status Routine Resus Stat 02/06/20 16:17 Ordered Medication Orders Acetaminophen (Tylenol Extra Strength) 1,000 mg PO Q4H PRN PRN Reason: Pain Atenolol (Tenormin) 50 mg PO DAILY [facility] Carbamazepine (Tegretol Xr) 100 mg PO BEDTIME [facility] Carbamazepine (Tegretol Xr) 50 mg PO DAILY [facility] Doxazosin Mesylate (Cardura) 4 mg PO BEDTIME [facility] Lactated Ringer's (Ringers, Lactated) 1,000 mls @ 100 mls/hr IV ASDIRECTED [facility] Last Admin: 02/06/20 14:42 Dose: 100 mls/hr Losartan Potassium (Cozaar) 100 mg PO DAILY [facility] Non-Formulary Medication (Amlodipine Besylate) 10 mg PO BEDTIME [facility] Sodium Chloride (Saline Flush) 10 ml FLUSH ASDIRECTED PRN PRN Reason: Keep Vein Open Sodium Chloride (Saline Flush) 2.5 ml FLUSH ASDIRECTED PRN PRN Reason: Keep Vein Open Sodium Chloride (Normal Saline) 10 ml IV ASDIRECTED PRN PRN Reason: IV Use Labs: Laboratory Tests 02/06/20 02/06/20 02/06/20 Range/Units 14:19 14:19 14:19 WBC 5.61 (4.0-11.0) K/uL RBC 3.91 L (4.30-5.90) M/uL Hgb 11.9 L (12.0-16.0) g/dL Hct 35.2 L (36.0-46.0) % MCV 90.0 (80.0-98.0) fL MCH 30.4 (27.0-32.0) pg MCHC 33.8 (31.0-37.0) g/dL RDW Std Deviation 42.9 (28.0-62.0) fl RDW Coeff of Mana 13 (11.0-15.0) % Plt Count 293 (150-400) K/uL MPV 8.80 (7.40-12.00) fL Neut % (Auto) 63.0 (48.0-80.0) % Lymph % (Auto) 21.7 (16.0-40.0) % Pepin % (Auto) 11.4 (0.0-15.0) % Eos % (Auto) 3.4 (0.0-7.0) % Baso % (Auto) 0.5 (0.0-1.5) % Neut # (Auto) 3.5 (1.4-5.7) K/uL Lymph # (Auto) 1.2 (0.6-2.4) K/uL Pepin # (Auto) 0.6 (0.0-0.8) K/uL Eos # (Auto) 0.2 (0.0-0.7) K/uL Baso # (Auto) 0.0 (0.0-0.1) K/uL Nucleated RBC % 0.0 /100WBC Nucleated RBCs # 0 K/uL INR 0.99 Sodium 131 L (136-145) mmol/L Potassium 4.2 (3.5-5.1) mmol/L Chloride 95 L (98-107) mmol/L Carbon Dioxide 27.4 (21.0-32.0) mmol/L BUN 17 (7.0-18.0) mg/dL Creatinine 0.6 (0.6-1.0) mg/dL Est Cr Clr Drug Dosing 59.19 mL/min Estimated GFR (MDRD) > 60.0 ml/min Glucose 112 H (74-106) mg/dL Calcium 9.4 (8.5-10.1) mg/dL Total Bilirubin 0.4 (0.2-1.0) mg/dL AST 15 (15-37) IU/L ALT 18 (14-63) IU/L Alkaline Phosphatase 84 (46-116) U/L Troponin I < 0.050 (0.000-0.056) ng/mL Total Protein 7.6 (6.4-8.2) g/dL Albumin 3.9 (3.4-5.0) g/dL Globulin 3.7 (2.6-4.0) g/dL Albumin/Globulin Ratio 1.1 (0.9-1.6) Urine Color Urine Appearance Urine pH (5.0-8.0) Ur Specific [place] (1.001-1.035) Urine Protein (NEGATIVE) mg/dL Urine Glucose (UA) (NEGATIVE) mg/dL Urine Ketones (NEGATIVE) mg/dL Urine Occult Blood (NEGATIVE) Urine Nitrite (NEGATIVE) Urine Bilirubin (NEGATIVE) Urine Urobilinogen (<2.0) EU/dL Ur Leukocyte Esterase (NEGATIVE) Urine RBC (0-2/HPF) Urine WBC (0-5/HPF) Ur Epithelial Cells (NONE-FEW) Urine Bacteria (NEGATIVE) 02/06/20 Range/Units 14:30 WBC (4.0-11.0) K/uL RBC (4.30-5.90) M/uL Hgb (12.0-16.0) g/dL Hct (36.0-46.0) % MCV (80.0-98.0) fL MCH (27.0-32.0) pg MCHC (31.0-37.0) g/dL RDW Std Deviation (28.0-62.0) fl RDW Coeff of Mana (11.0-15.0) % Plt Count (150-400) K/uL MPV (7.40-12.00) fL Neut % (Auto) (48.0-80.0) % Lymph % (Auto) (16.0-40.0) % Pepin % (Auto) (0.0-15.0) % Eos % (Auto) (0.0-7.0) % Baso % (Auto) (0.0-1.5) % Neut # (Auto) (1.4-5.7) K/uL Lymph # (Auto) (0.6-2.4) K/uL Pepin # (Auto) (0.0-0.8) K/uL Eos # (Auto) (0.0-0.7) K/uL Baso # (Auto) (0.0-0.1) K/uL Nucleated RBC % /100WBC Nucleated RBCs # K/uL INR Sodium (136-145) mmol/L Potassium (3.5-5.1) mmol/L Chloride (98-107) mmol/L Carbon Dioxide (21.0-32.0) mmol/L BUN (7.0-18.0) mg/dL Creatinine (0.6-1.0) mg/dL Est Cr Clr Drug Dosing mL/min Estimated GFR (MDRD) ml/min Glucose (74-106) mg/dL Calcium (8.5-10.1) mg/dL Total Bilirubin (0.2-1.0) mg/dL AST (15-37) IU/L ALT (14-63) IU/L Alkaline Phosphatase (46-116) U/L Troponin I (0.000-0.056) ng/mL Total Protein (6.4-8.2) g/dL Albumin (3.4-5.0) g/dL Globulin (2.6-4.0) g/dL Albumin/Globulin Ratio (0.9-1.6) Urine Color YELLOW Urine Appearance CLEAR Urine pH 7.0 (5.0-8.0) Ur Specific [place] 1.015 (1.001-1.035) Urine Protein NEGATIVE (NEGATIVE) mg/dL Urine Glucose (UA) NEGATIVE (NEGATIVE) mg/dL Urine Ketones NEGATIVE (NEGATIVE) mg/dL Urine Occult Blood TRACE-INTACT H (NEGATIVE) Urine Nitrite NEGATIVE (NEGATIVE) Urine Bilirubin NEGATIVE (NEGATIVE) Urine Urobilinogen 0.2 (<2.0) EU/dL Ur Leukocyte Esterase NEGATIVE (NEGATIVE) Urine RBC 0-2 (0-2/HPF) Urine WBC 0-2 (0-5/HPF) Ur Epithelial Cells FEW (NONE-FEW) Urine Bacteria FEW (NEGATIVE) Meds: Medications Generic Name Dose Route Start Last Admin Trade Name Freq PRN Reason Stop Dose Admin Acetaminophen 1,000 mg 02/06/20 16:17 Tylenol Extra Strength PO Q4H PRN Pain Atenolol 50 mg 02/07/20 09:00 Tenormin PO DAILY [facility] Carbamazepine 100 mg 02/06/20 21:00 Tegretol Xr PO BEDTIME [facility] Carbamazepine 50 mg 02/07/20 09:00 Tegretol Xr PO DAILY [facility] Doxazosin Mesylate 4 mg 02/06/20 21:00 Cardura PO BEDTIME RAQUEL Lactated Ringer's 1,000 mls @ 100 mls/hr 02/06/20 14:30 02/06/20 14:42 Ringers, Lactated IV 100 mls/hr ASDIRECTED RAQUEL Administration Losartan Potassium 100 mg 02/07/20 09:00 Cozaar PO DAILY [facility] Non-Formulary Medication 10 mg 02/06/20 21:00 Amlodipine Besylate PO BEDTIME [facility]QU[facility] Sodium Chloride 10 ml 02/06/20 13:50 Saline Flush FLUSH ASDIRECTED PRN Keep Vein Open Sodium Chloride 2.5 ml 02/06/20 13:50 Saline Flush FLUSH ASDIRECTED PRN Keep Vein Open Sodium Chloride 10 ml 02/06/20 13:50 Normal Saline IV ASDIRECTED PRN IV Use Departure - Departure Time of Disposition: 16:02 Disposition: Refer to Observation Clinical Impression: Post concussion syndrome, Dizziness - Discharge Information Referrals: Darrin Licea MD [Primary Care Provider] - Forms: ED Department Discharge Sepsis Event Note - Focused Exam Vital Signs: Vital Signs Temp Pulse Resp BP Pulse Ox 02/06/20 15:37 59 L 187/79 H 91 L 02/06/20 14:38 62 183/79 H 95 02/06/20 14:04 97.3 F 70 16 202/94 H 94 L Date Exam was Performed: 02/06/20 Time Exam was Performed: 16:28 - My Orders Last 24 Hours: My Active Orders 02/06/20 13:59 Orthostatic Vital Signs [RC] ASDIRECTED 02/06/20 14:30 Lactated Ringers [Ringers, Lactated] 1,000 ml IV ASDIRECTED 02/06/20 16:13 Admission Status [Patient Status] [ADT] Stat Cardiac Monitoring [RC] . DIRECTED - Assessment/Plan Last 24 Hours: My Active Orders 02/06/20 13:59 Orthostatic Vital Signs [RC] ASDIRECTED 02/06/20 14:30 Lactated Ringers [Ringers, Lactated] 1,000 ml IV ASDIRECTED 02/06/20 16:13 Admission Status [Patient Status] [ADT] Stat Cardiac Monitoring [RC] . DIRECTED
[2020-02-06] MEDS ORDERED: Lactated Ringers 1,000 ML IV SCH (14:30)
--- NOTE | 2020-02-06 15:02 | CR ---
Chest: Portable view of the chest was obtained. Comparison: Prior chest x-ray of 02/02/20. Slight atelectasis is noted within the right lung base. Lungs otherwise are clear. Heart is mildly enlarged. Tortuous thoracic aorta is seen. Large hiatal hernia appears to be present. Bony structures are grossly intact. Impression: 1. Findings as noted above. 2. Nothing acute is seen. Diagnostic code #2 This report was dictated in MDT
[2020-02-06 15:05] LABS: BLOOD UREA NITROGEN,BUN 17 mg/dL (7.0-18.0); CARBON DIOXIDE,CO2 27.4 mmol/L (21.0-32.0); CHLORIDE,CL 95 mmol/L (98-107); GLUCOSE RANDOM 112 mg/dL (74-106); POTASSIUM,K 4.2 mmol/L (3.5-5.1); SODIUM,NA 131 mmol/L (136-145)
--- NOTE | 2020-02-06 15:34 | CT ---
Head CT Technique: Multiple axial sections through the brain were obtained. Intravenous contrast was not utilized. Comparison: Prior head CT study of 02/02/20. Findings: Ventricles along with basal cisterns and sulci over the convexities are mildly prominent. Mild areas of diminished density noted within the periventricular white matter which is most likely due to small vessel ischemic demyelination change. No other abnormal parenchymal densities are seen. No evidence of intracranial hemorrhage. No midline shift or mass-effect is seen. Mild atherosclerotic calcifications seen within the carotid siphon. Soft tissue hematoma is seen within the posterior scalp. Bone window settings were reviewed. No acute calvarial finding is seen. Visualized paranasal sinuses and mastoid sinuses show nothing acute. Impression: 1. Mild senescent change as noted above. 2. Soft tissue hematoma within the posterior scalp. 3. No acute intracranial abnormality is appreciated. Diagnostic code #3 This report was dictated in MDT
[2020-02-06] MEDS ORDERED: Ondansetron 4 MG/2 ML SDV IVPUSH PRN (16:33)
--- NOTE | 2020-02-06 16:33 | PCM.HP.2 ---
H&P History of Present Illness - General Date of Service: 02/06/20 Admit Problem/Dx: Admission Diagnosis/Problem Admission Diagnosis/Problem Dizziness Source of Information: Patient, Old Records History Limitations: Reports: No Limitations - History of Present Illness Initial Comments - Free Text/Narative: This 84 year old with pmh of HTN, seizures and recent fall presented to the ED with complaints of dizziness since she fell last week. She reports last week she was watering her ballard and had a mistep on the stairs outside of her house , falling and hitting her head. CT of head was negative, but did have laceration to posterior scalp with was stapled. She was discharged home. She reports since she has been at home she is been very very dizzy unable to ambulate without holding on to furniture and needing to walk with her head straight. She reports dizziness is worse when she turns her head to the left. Denies vision changes, no blurred or double vision. No headache. hematoma to scalp has very little pain. Has chronic neck, should and back pain. No chest pain or SOB. No abdominal pain or urinary concerns. No swelling or other neurological deficits. In the ED labwork obtained which revealed mild hyponatremia which is near baseline. Cl 95. BUN 17, Cr 0.6 UA negative. troponin negative. EKG SR, new inverted t waves from previous EKG, no arrhythmias. BP noted to be elevated in the ED, 170-200/80-90s. Orthostatic VS stable, no significant changes noted. Head CT negative for acute intracranial process, posterior scalp hematoma noted. CXR negative. She will be admitted for dizziness post fall. PCP, Dr Licea - Related Data Allergies/Adverse Reactions: Allergies Allergy/AdvReac Type Severity Reaction Status Date / Time No Known Allergies Allergy Verified 02/06/20 17:21 Home Medications: Home Meds Acetaminophen [Tylenol Extra Strength] 1,000 mg PO Q4H PRN 02/28/18 [History] Losartan Potassium [Cozaar] 100 mg PO DAILY 02/28/18 [History] amLODIPine Besylate [Amlodipine Besylate] 10 mg PO BEDTIME 02/28/18 [History] atenoloL [Atenolol] 50 mg PO DAILY 02/28/18 [History] Doxazosin [Cardura] 4 mg PO BEDTIME 02/06/20 [History] carBAMazepine [Carbamazepine] 50 mg PO DAILY 02/06/20 [History] carBAMazepine [Carbamazepine] 100 mg PO BEDTIME 02/06/20 [History] gemfibroziL [Gemfibrozil] 600 mg PO BID 02/06/20 [History] Past Medical History - Past Health History Medical/Surgical History: Denies Medical/Surgical History Cardiovascular History: Reports: Hypertension Respiratory History: Reports: None Gastrointestinal History: Reports: None 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 History: Reports: None 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: Musculoskeletal History: Reports: Back Pain, Chronic Other Musculoskeletal History: Has spinal stenosis Neurological History: Reports: None Psychiatric History: Reports: None Endocrine/Metabolic History: Reports: None Immunologic History: Reports: None Oncologic (Cancer) History: Reports: None Dermatologic History: Reports: None - Infectious Disease History Infectious Disease History: Reports: Chicken Pox, Hepatitis A, Measles, Mumps - Past Surgical History HEENT Surgical History: Reports: Adenoidectomy, Tonsillectomy GI Surgical History: Reports: None Musculoskeletal Surgical History: Reports: Arthroscopic Knee Other Musculoskeletal Surgeries/Procedures:: bilateral knee replacement Social & Family History - Family History Family Medical History: Noncontributory - Tobacco Use Smoking Status *Q: Never Smoker - Caffeine Use Caffeine Use: Reports: Coffee - Recreational Drug Use Recreational Drug Use: No H&P Review of Systems - Review of Systems: Review Of Systems: See Below General: Reports: Weakness. Denies: Fever, Chills, Malaise HEENT: Reports: Vertigo. Denies: Headaches, Hearing Changes Pulmonary: Reports: No Symptoms. Denies: Shortness of Breath Cardiovascular: Reports: Blood Pressure Problem. Denies: Chest Pain Gastrointestinal: Reports: No Symptoms. Denies: Abdominal Pain 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: Reports: No Symptoms. Denies: Dysuria, Frequency Musculoskeletal: Reports: Neck Pain Skin: Reports: No Symptoms Neurological: Reports: Dizziness Hematologic/Lymphatic: Reports: No Symptoms Immunologic: Reports: No Symptoms Exam - Exam Exam: See Below - Vital Signs Vital Signs: Last Vital Signs Temp 97.3 F 02/06/20 14:04 Pulse 59 L 02/06/20 15:37 Resp 16 02/06/20 14:04 BP 187/79 H 02/06/20 15:37 Pulse Ox 91 L 02/06/20 15:37 Orthostatic Blood Pressure [ 171/72 Standing] Orthostatic Blood Pressure [ 174/80 Sitting] Orthostatic Blood Pressure [ 176/76 Supine] Weight: 72.575 kg - Exam General: Alert, Oriented, Cooperative HEENT: Conjunctiva Clear, Mucosa Moist & [place] (dry), Posterior Pharynx Clear, Other (Nystagmus with head movement to L) Neck: Supple, Trachea Midline, Full Range of Motion Lungs: Clear to Auscultation, Normal Respiratory Effort Cardiovascular: Regular Rate, Regular Rhythm, Normal S1, Normal S2. No: Systolic Murmur GI/Abdominal Exam: Normal Bowel Sounds, Soft, Non-Tender Back Exam: Normal Inspection, Full Range of Motion Extremities: Normal Inspection, Normal Range of Motion, Non-Tender, No Pedal Edema Skin: Ecchymosis (poasterior neck and lateral L neck.), Wound (stapled laceration to posterior L scalp) Neuro Extensive - Mental Status: Alert, Oriented x3, Normal Mood/Affect, Normal Cognition, Memory Intact Neuro Extensive - Motor, Sensory, Reflexes: CN II-XII Intact Psychiatric: Alert, Normal Affect, Normal Mood - Patient Data Lab Results Last 24 hrs: Laboratory Results - last 24 hr 02/06/20 02/06/20 02/06/20 Range/Units 14:19 14:19 14:19 WBC 5.61 (4.0-11.0) K/uL RBC 3.91 L (4.30-5.90) M/uL Hgb 11.9 L (12.0-16.0) g/dL Hct 35.2 L (36.0-46.0) % MCV 90.0 (80.0-98.0) fL MCH 30.4 (27.0-32.0) pg MCHC 33.8 (31.0-37.0) g/dL RDW Std Deviation 42.9 (28.0-62.0) fl RDW Coeff of Man[place] 13 (11.0-15.0) % Plt Count 293 (150-400) K/uL MPV 8.80 (7.40-12.00) fL Neut % (Auto) 63.0 (48.0-80.0) % Lymph % (Auto) 21.7 (16.0-40.0) % [place] % (Auto) 11.4 (0.0-15.0) % Eos % (Auto) 3.4 (0.0-7.0) % Baso % (Auto) 0.5 (0.0-1.5) % Neut # (Auto) 3.5 (1.4-5.7) K/uL Lymph # (Auto) 1.2 (0.6-2.4) K/uL [place] # (Auto) 0.6 (0.0-0.8) K/uL Eos # (Auto) 0.2 (0.0-0.7) K/uL Baso # (Auto) 0.0 (0.0-0.1) K/uL Nucleated RBC % 0.0 /100WBC Nucleated RBCs # 0 K/uL INR 0.99 Sodium 131 L (136-145) mmol/L Potassium 4.2 (3.5-5.1) mmol/L Chloride 95 L (98-107) mmol/L Carbon Dioxide 27.4 (21.0-32.0) mmol/L BUN 17 (7.0-18.0) mg/dL Creatinine 0.6 (0.6-1.0) mg/dL Est Cr Clr Drug Dosing 59.19 mL/min Estimated GFR (MDRD) > 60.0 ml/min Glucose 112 H (74-106) mg/dL Calcium 9.4 (8.5-10.1) mg/dL Total Bilirubin 0.4 (0.2-1.0) mg/dL AST 15 (15-37) IU/L ALT 18 (14-63) IU/L Alkaline Phosphatase 84 (46-116) U/L Troponin I < 0.050 (0.000-0.056) ng/mL Total Protein 7.6 (6.4-8.2) g/dL Albumin 3.9 (3.4-5.0) g/dL Globulin 3.7 (2.6-4.0) g/dL Albumin/Globulin Ratio 1.1 (0.9-1.6) Urine Color Urine Appearance Urine pH (5.0-8.0) Ur Specific [place] (1.001-1.035) Urine Protein (NEGATIVE) mg/dL Urine Glucose (UA) (NEGATIVE) mg/dL Urine Ketones (NEGATIVE) mg/dL Urine Occult Blood (NEGATIVE) Urine Nitrite (NEGATIVE) Urine Bilirubin (NEGATIVE) Urine Urobilinogen (<2.0) EU/dL Ur Leukocyte Esterase (NEGATIVE) Urine RBC (0-2/HPF) Urine WBC (0-5/HPF) Ur Epithelial Cells (NONE-FEW) Urine Bacteria (NEGATIVE) 02/06/20 Range/Units 14:30 WBC (4.0-11.0) K/uL RBC (4.30-5.90) M/uL Hgb (12.0-16.0) g/dL Hct (36.0-46.0) % MCV (80.0-98.0) fL MCH (27.0-32.0) pg MCHC (31.0-37.0) g/dL RDW Std Deviation (28.0-62.0) fl RDW Coeff of [place] (11.0-15.0) % Plt Count (150-400) K/uL MPV (7.40-12.00) fL Neut % (Auto) (48.0-80.0) % Lymph % (Auto) (16.0-40.0) % [place] % (Auto) (0.0-15.0) % Eos % (Auto) (0.0-7.0) % Baso % (Auto) (0.0-1.5) % Neut # (Auto) (1.4-5.7) K/uL Lymph # (Auto) (0.6-2.4) K/uL [place] # (Auto) (0.0-0.8) K/uL Eos # (Auto) (0.0-0.7) K/uL Baso # (Auto) (0.0-0.1) K/uL Nucleated RBC % /100WBC Nucleated RBCs # K/uL INR Sodium (136-145) mmol/L Potassium (3.5-5.1) mmol/L Chloride (98-107) mmol/L Carbon Dioxide (21.0-32.0) mmol/L BUN (7.0-18.0) mg/dL Creatinine (0.6-1.0) mg/dL Est Cr Clr Drug Dosing mL/min Estimated GFR (MDRD) ml/min Glucose (74-106) mg/dL Calcium (8.5-10.1) mg/dL Total Bilirubin (0.2-1.0) mg/dL AST (15-37) IU/L ALT (14-63) IU/L Alkaline Phosphatase (46-116) U/L Troponin I (0.000-0.056) ng/mL Total Protein (6.4-8.2) g/dL Albumin (3.4-5.0) g/dL Globulin (2.6-4.0) g/dL Albumin/Globulin Ratio (0.9-1.6) Urine Color YELLOW Urine Appearance CLEAR Urine pH 7.0 (5.0-8.0) Ur Specific [place] 1.015 (1.001-1.035) Urine Protein NEGATIVE (NEGATIVE) mg/dL Urine Glucose (UA) NEGATIVE (NEGATIVE) mg/dL Urine Ketones NEGATIVE (NEGATIVE) mg/dL Urine Occult Blood TRACE-INTACT H (NEGATIVE) Urine Nitrite NEGATIVE (NEGATIVE) Urine Bilirubin NEGATIVE (NEGATIVE) Urine Urobilinogen 0.2 (<2.0) EU/dL Ur Leukocyte Esterase NEGATIVE (NEGATIVE) Urine RBC 0-2 (0-2/HPF) Urine WBC 0-2 (0-5/HPF) Ur Epithelial Cells FEW (NONE-FEW) Urine Bacteria FEW (NEGATIVE) Result Diagrams: 02/06/20 14:19 02/06/20 14:19 Sepsis Event Note - Evaluation Sepsis Screening Result: No Definite Risk - Focused Exam Vital Signs: Vital Signs Temp Pulse Resp BP Pulse Ox 02/06/20 15:37 59 L 187/79 H 91 L 02/06/20 14:38 62 183/79 H 95 02/06/20 14:04 97.3 F 70 16 202/94 H 94 L Date Exam was Performed: 02/06/20 Time Exam was Performed: 20:41 - Problem List (1) HTN (hypertension) SNOMED Code(s): 20781476 ICD Code: I10 - ESSENTIAL (PRIMARY) HYPERTENSION Status: Acute Current Visit: Yes (2) Seizure disorder SNOMED Code(s): 786558231 ICD Code: G40.909 - EPILEPSY, UNSP, NOT INTRACTABLE, WITHOUT STATUS EPILEPTICUS Status: Acute Current Visit: Yes (3) Dizziness SNOMED Code(s): 393230651, 964275735 ICD Code: R42 - DIZZINESS AND GIDDINESS Status: Acute Current Visit: Yes (4) Post concussion syndrome SNOMED Code(s): 34666069 ICD Code: F07.81 - POSTCONCUSSIONAL SYNDROME Status: Acute Current Visit : Yes (5) Fall SNOMED Code(s): 5350263, 919957266 ICD Code: W19.XXXA - UNSPECIFIED FALL, INITIAL ENCOUNTER Status: Acute Current Visit: No Qualifiers: Encounter type: initial encounter Qualified Code(s): W19.XXXA - Unspecified fall, initial encounter (6) Scalp laceration SNOMED Code(s): 278523510 ICD Code: S01.01XA - LACERATION WITHOUT FOREIGN BODY OF SCALP, INITIAL ENCOUNTER Status: Acute Current Visit: No Problem List Initiated/Reviewed/Updated: Yes Orders Last 24hrs: Active Orders 24 hr Category Date Time Status Admission Status [Patient Status] [ADT] Stat ADT 02/06/20 16:13 Active Assess Neurological Status [RC] ASDIRECTED Care 02/06/20 13:50 Inactive Bedrest [RC] ASDIRECTED Care 02/06/20 13:50 Inactive Blood Glucose Check, Bedside [RC] STAT Care 02/06/20 13:51 Inactive Cardiac Monitoring [RC] . DIRECTED Care 02/06/20 13:50 Inactive Cardiac Monitoring [RC] . DIRECTED Care 02/06/20 16:13 Active EKG Documentation Completion [RC] STAT Care 02/06/20 13:50 Active Height and Weight [RC] UPON Care 02/06/20 13:50 Inactive Initiate Acute Stroke Protocol [RC] STAT Care 02/06/20 13:50 Inactive NIH Stroke Scale [RC] ASDIRECTED Care 02/06/20 13:50 Inactive Nursing Bedside Swallow Screen [RC] ASDIRECTED Care 02/06/20 13:50 Inactive Orthostatic Vital Signs [RC] ASDIRECTED Care 02/06/20 13:59 Active Oxygen Therapy [RC] ASDIRECTED Care 02/06/20 13:50 Inactive Stroke Education, General [RC] Click to Edit Care 02/06/20 13:50 Inactive Telemetry Monitoring [Cardiac Monitoring] [RC] . Care 02/06/20 16:16 Ordered DIRECTED Vital Signs [RC] Q4H Care 02/06/20 13:50 Active Acetaminophen [Tylenol Extra Strength] Med 02/06/20 16:17 Ordered 1,000 mg PO Q4H PRN Doxazosin [Cardura] Med 02/06/20 21:00 Ordered 4 mg PO BEDTIME Lactated Ringers [Ringers, Lactated] 1,000 ml Med 02/06/20 14:30 Active IV ASDIRECTED Losartan [Cozaar] Med 02/07/20 09:00 Ordered 100 mg PO DAILY Sodium Chloride 0.9% [Normal Saline] Med 02/06/20 13:50 Active 10 ml IV ASDIRECTED PRN Sodium Chloride 0.9% [Saline Flush] Med 02/06/20 13:50 Active 10 ml FLUSH ASDIRECTED PRN Sodium Chloride 0.9% [Saline Flush] Med 02/06/20 13:50 Active 2.5 ml FLUSH ASDIRECTED PRN amLODIPine Besylate Med 02/06/20 21:00 Ordered 10 mg PO BEDTIME atenoloL [Tenormin] Med 02/07/20 09:00 Ordered 50 mg PO DAILY carBAMazepine [TEGretol XR] Med 02/06/20 21:00 Ordered 100 mg PO BEDTIME carBAMazepine [TEGretol XR] Med 02/07/20 09:00 Ordered 50 mg PO DAILY Resuscitation Status Routine Resus Stat 02/06/20 16:17 Ordered Medication Orders Acetaminophen (Tylenol Extra Strength) 1,000 mg PO Q4H PRN PRN Reason: Pain Atenolol (Tenormin) 50 mg PO DAILY RAQUEL Carbamazepine (Tegretol Xr) 100 mg PO BEDTIME RAQUEL Carbamazepine (Tegretol Xr) 50 mg PO DAILY RAQUEL Doxazosin Mesylate (Cardura) 4 mg PO BEDTIME RAQUEL Lactated Ringer's (Ringers, Lactated) 1,000 mls @ 100 mls/hr IV ASDIRECTED RAQUEL Last Admin: 02/06/20 14:42 Dose: 100 mls/hr Losartan Potassium (Cozaar) 100 mg PO DAILY RAQUEL Non-Formulary Medication (Amlodipine Besylate) 10 mg PO BEDTIME RAQUEL Sodium Chloride (Saline Flush) 10 ml FLUSH ASDIRECTED PRN PRN Reason: Keep Vein Open Sodium Chloride (Saline Flush) 2.5 ml FLUSH ASDIRECTED PRN PRN Reason: Keep Vein Open Sodium Chloride (Normal Saline) 10 ml IV ASDIRECTED PRN PRN Reason: IV Use Assessment/Plan Comment:: This 84 year old female admitted with dizziness, suspected secondary to BPPV, dehydration, or post-concussion 1. Dizziness - Could be multifactorial, has nystagmus to L. BPPV vs post concussion syndrome from fall vs mild dehydration. - Consult PT to evaluate vestibular in am - Monitor on telemetry for cardiac source, though less likely - Hold medications to treat dizziness until after PT eval - Consider possible MRI in am if dizziness not improved with with PT - Give 1 L slow IVFs this evening. 2. HTN - BP quite elevated, will restart home medications of Amlodipine, Doxazosin, Losartan and Atenolol - Hydralazine PRN 3. Seizure disorder - Continue Carbamazepine per home dosing VTE prophylaxis: SCDs Dispo: 1-2 days pending improvement. - Mortality Measure Prognosis:: Good
[2020-02-06] MEDS ORDERED: hydrALAZINE 25 MG Tab PO PRN (16:41)
[2020-02-06] MEDS ORDERED: Labetalol 100 MG/20 ML MDV IVPUSH ONE (18:31)
[2020-02-06] MEDS ORDERED: hydrALAZINE 20 MG/ML SDV IVPUSH ONE (19:03)
[2020-02-06] MEDS ORDERED: Doxazosin 4 MG Tab PO SCH (21:00)
[2020-02-06] MEDS ORDERED: amLODIPine 5 MG Tab PO SCH (21:00)
[2020-02-06] MEDS ORDERED: carBAMazepine 100 MG Cap.ER PO SCH (21:00)
[2020-02-06] MEDS: Acetaminophen 500 MG Tab PO PRN (21:09)
[2020-02-06] MEDS ORDERED: hydrALAZINE 20 MG/ML SDV IVPUSH PRN (23:33)
[2020-02-06] MEDS ORDERED: LORazepam 2 MG/ML SDV IVPUSH ONE (23:35)
[2020-02-07 06:29] LABS: BLOOD UREA NITROGEN,BUN 19 mg/dL (7.0-18.0); CARBON DIOXIDE,CO2 26.5 mmol/L (21.0-32.0); CHLORIDE,CL 97 mmol/L (98-107); GLUCOSE RANDOM 102 mg/dL (74-106); POTASSIUM,K 3.8 mmol/L (3.5-5.1); SODIUM,NA 132 mmol/L (136-145)
[2020-02-07] MEDS ORDERED: carBAMazepine 100 MG Tab.Chew PO SCH ×2 (08:41→09:00)
[2020-02-07] MEDS ORDERED: carBAMazepine 100 MG Cap.ER PO SCH (09:00)
[2020-02-07] MEDS ORDERED: Losartan 50 MG Tab PO SCH (09:00)
[2020-02-07] MEDS ORDERED: Atenolol 50 MG Tab PO SCH (09:00)
[2020-02-07] MEDS: Acetaminophen 500 MG Tab PO PRN (10:42)
--- NOTE | 2020-02-07 11:27 | PCM.PN ---
- General Info Date of Service: 02/07/20 Admission Dx/Problem (Free Text): Admission Diagnosis/Problem Admission Diagnosis/Problem Dizziness Subjective Update: Feeling improved today, mild dizziness Is able to turn head to left today without significant dizziness. No chest pain or SOB. No headache or blurred vision. Mild R shoulder and neck pain which is chronic. Functional Status: Reports: Pain Controlled, Tolerating Diet, Ambulating, Urinating - Review of Systems General: Reports: No Symptoms HEENT: Reports: Other (dizziness). Denies: Headaches, Visual Changes Pulmonary: Reports: No Symptoms. Denies: Shortness of Breath Cardiovascular: Reports: No Symptoms. Denies: Chest Pain Gastrointestinal: Reports: No Symptoms 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: Reports: No Symptoms Musculoskeletal: Reports: No Symptoms Skin: Reports: No Symptoms Neurological: Reports: Dizziness Psychiatric: Reports: No Symptoms - Patient Data Vitals - Most Recent: Last Vital Signs Temp 98.4 F 02/07/20 08:03 Pulse 73 02/07/20 08:50 Resp 18 02/07/20 08:03 BP 147/68 H 02/07/20 08:50 Pulse Ox 93 L 02/07/20 08:03 Orthostatic Blood Pressure [ 171/72 Standing] Orthostatic Blood Pressure [ 174/80 Sitting] Orthostatic Blood Pressure [ 176/76 Supine] Weight - Most Recent: 72.575 kg I&O - Last 24 Hours: Intake & Output 02/06/20 02/07/20 02/07/20 22:59 06:59 14:59 Intake Total 1262 Output Total 1900 Balance -638 Lab Results Last 24 Hours: Laboratory Results - last 24 hr 02/06/20 02/06/20 02/06/20 Range/Units 14:19 14:19 14:19 WBC 5.61 (4.0-11.0) K/uL RBC 3.91 L (4.30-5.90) M/uL Hgb 11.9 L (12.0-16.0) g/dL Hct 35.2 L (36.0-46.0) % MCV 90.0 (80.0-98.0) fL MCH 30.4 (27.0-32.0) pg MCHC 33.8 (31.0-37.0) g/dL RDW Std Deviation 42.9 (28.0-62.0) fl RDW Coeff of [place] 13 (11.0-15.0) % Plt Count 293 (150-400) K/uL MPV 8.80 (7.40-12.00) fL Neut % (Auto) 63.0 (48.0-80.0) % Lymph % (Auto) 21.7 (16.0-40.0) % [place] % (Auto) 11.4 (0.0-15.0) % Eos % (Auto) 3.4 (0.0-7.0) % Baso % (Auto) 0.5 (0.0-1.5) % Neut # (Auto) 3.5 (1.4-5.7) K/uL Lymph # (Auto) 1.2 (0.6-2.4) K/uL [place] # (Auto) 0.6 (0.0-0.8) K/uL Eos # (Auto) 0.2 (0.0-0.7) K/uL Baso # (Auto) 0.0 (0.0-0.1) K/uL Nucleated RBC % 0.0 /100WBC Nucleated RBCs # 0 K/uL INR 0.99 Sodium 131 L (136-145) mmol/L Potassium 4.2 (3.5-5.1) mmol/L Chloride 95 L (98-107) mmol/L Carbon Dioxide 27.4 (21.0-32.0) mmol/L BUN 17 (7.0-18.0) mg/dL Creatinine 0.6 (0.6-1.0) mg/dL Est Cr Clr Drug Dosing 59.19 mL/min Estimated GFR (MDRD) > 60.0 ml/min Glucose 112 H (74-106) mg/dL Calcium 9.4 (8.5-10.1) mg/dL Total Bilirubin 0.4 (0.2-1.0) mg/dL AST 15 (15-37) IU/L ALT 18 (14-63) IU/L Alkaline Phosphatase 84 (46-116) U/L Troponin I < 0.050 (0.000-0.056) ng/mL Total Protein 7.6 (6.4-8.2) g/dL Albumin 3.9 (3.4-5.0) g/dL Globulin 3.7 (2.6-4.0) g/dL Albumin/Globulin Ratio 1.1 (0.9-1.6) Urine Color Urine Appearance Urine pH (5.0-8.0) Ur Specific [place] (1.001-1.035) Urine Protein (NEGATIVE) mg/dL Urine Glucose (UA) (NEGATIVE) mg/dL Urine Ketones (NEGATIVE) mg/dL Urine Occult Blood (NEGATIVE) Urine Nitrite (NEGATIVE) Urine Bilirubin (NEGATIVE) Urine Urobilinogen (<2.0) EU/dL Ur Leukocyte Esterase (NEGATIVE) Urine RBC (0-2/HPF) Urine WBC (0-5/HPF) Ur Epithelial Cells (NONE-FEW) Urine Bacteria (NEGATIVE) 02/06/20 02/07/20 Range/Units 14:30 05:54 WBC (4.0-11.0) K/uL RBC (4.30-5.90) M/uL Hgb (12.0-16.0) g/dL Hct (36.0-46.0) % MCV (80.0-98.0) fL MCH (27.0-32.0) pg MCHC (31.0-37.0) g/dL RDW Std Deviation (28.0-62.0) fl RDW Coeff of [place] (11.0-15.0) % Plt Count (150-400) K/uL MPV (7.40-12.00) fL Neut % (Auto) (48.0-80.0) % Lymph % (Auto) (16.0-40.0) % [place] % (Auto) (0.0-15.0) % Eos % (Auto) (0.0-7.0) % Baso % (Auto) (0.0-1.5) % Neut # (Auto) (1.4-5.7) K/uL Lymph # (Auto) (0.6-2.4) K/uL [place] # (Auto) (0.0-0.8) K/uL Eos # (Auto) (0.0-0.7) K/uL Baso # (Auto) (0.0-0.1) K/uL Nucleated RBC % /100WBC Nucleated RBCs # K/uL INR Sodium 132 L (136-145) mmol/L Potassium 3.8 (3.5-5.1) mmol/L Chloride 97 L (98-107) mmol/L Carbon Dioxide 26.5 (21.0-32.0) mmol/L BUN 19 H (7.0-18.0) mg/dL Creatinine 0.6 (0.6-1.0) mg/dL Est Cr Clr Drug Dosing 59.19 mL/min Estimated GFR (MDRD) > 60.0 ml/min Glucose 102 (74-106) mg/dL Calcium 8.9 (8.5-10.1) mg/dL Total Bilirubin (0.2-1.0) mg/dL AST (15-37) IU/L ALT (14-63) IU/L Alkaline Phosphatase (46-116) U/L Troponin I (0.000-0.056) ng/mL Total Protein (6.4-8.2) g/dL Albumin (3.4-5.0) g/dL Globulin (2.6-4.0) g/dL Albumin/Globulin Ratio (0.9-1.6) Urine Color YELLOW Urine Appearance CLEAR Urine pH 7.0 (5.0-8.0) Ur Specific [place] 1.015 (1.001-1.035) Urine Protein NEGATIVE (NEGATIVE) mg/dL Urine Glucose (UA) NEGATIVE (NEGATIVE) mg/dL Urine Ketones NEGATIVE (NEGATIVE) mg/dL Urine Occult Blood TRACE-INTACT H (NEGATIVE) Urine Nitrite NEGATIVE (NEGATIVE) Urine Bilirubin NEGATIVE (NEGATIVE) Urine Urobilinogen 0.2 (<2.0) EU/dL Ur Leukocyte Esterase NEGATIVE (NEGATIVE) Urine RBC 0-2 (0-2/HPF) Urine WBC 0-2 (0-5/HPF) Ur Epithelial Cells FEW (NONE-FEW) Urine Bacteria FEW (NEGATIVE) Med Orders - Current: Current Medications Acetaminophen (Tylenol Extra Strength) 1,000 mg PO Q4H PRN PRN Reason: Pain Last Admin: 02/07/20 10:42 Dose: 1,000 mg Amlodipine Besylate (Norvasc) 10 mg PO BEDTIME [facility]QUEL Last Admin: 02/06/20 21:08 Dose: 10 mg Atenolol (Tenormin) 50 mg PO DAILY [facility] Last Admin: 02/07/20 08:50 Dose: 50 mg Carbamazepine (Tegretol) 100 mg PO BEDTIME [facility] Carbamazepine (Tegretol) 50 mg PO DAILY [facility] Last Admin: 02/07/20 08:53 Dose: 50 mg Doxazosin Mesylate (Cardura) 4 mg PO BEDTIME [facility] Last Admin: 02/06/20 21:19 Dose: 4 mg Hydralazine HCl (Apresoline) 20 mg IVPUSH Q4H PRN PRN Reason: Hypertension Lactated Ringer's (Ringers, Lactated) 1,000 mls @ 100 mls/hr IV ASDIRECTED [facility] Stop: 02/07/20 23:00 Last Admin: 02/06/20 14:42 Dose: 100 mls/hr Losartan Potassium (Cozaar) 100 mg PO DAILY [facility] Last Admin: 02/07/20 08:50 Dose: 100 mg Ondansetron HCl (Zofran) 4 mg IVPUSH Q4H PRN PRN Reason: Nausea Sodium Chloride (Saline Flush) 2.5 ml FLUSH ASDIRECTED PRN PRN Reason: Keep Vein Open Discontinued Medications Carbamazepine (Tegretol Xr) 100 mg PO BEDTIME [facility] Last Admin: 02/06/20 21:20 Dose: 100 mg Carbamazepine (Tegretol Xr) 50 mg PO DAILY [facility] Hydralazine HCl (Apresoline) 25 mg PO Q6H PRN PRN Reason: SBP>180/DBP 110 Last Admin: 02/06/20 17:47 Dose: 25 mg Hydralazine HCl (Apresoline) 20 mg IVPUSH ONETIME ONE Stop: 02/06/20 19:04 Last Admin: 02/06/20 19:59 Dose: 20 mg Labetalol HCl (Normodyne) 5 mg IVPUSH ONETIME ONE; Protocol Stop: 02/06/20 18:32 Last Admin: 02/06/20 18:52 Dose: 5 mg Lorazepam (Ativan) 1 mg IVPUSH ONETIME ONE Stop: 02/06/20 23:36 Last Admin: 02/07/20 00:16 Dose: 1 mg Sodium Chloride (Saline Flush) 10 ml FLUSH ASDIRECTED PRN PRN Reason: Keep Vein Open Sodium Chloride (Saline Flush) 2.5 ml FLUSH ASDIRECTED PRN PRN Reason: Keep Vein Open Sodium Chloride (Normal Saline) 10 ml IV ASDIRECTED PRN PRN Reason: IV Use - Exam General: Alert, Oriented, Cooperative, No Acute Distress HEENT: Pupils Reactive Neck: Supple Lungs: Clear to Auscultation, Normal Respiratory Effort Cardiovascular: Regular Rate, Regular Rhythm GI/Abdominal Exam: Normal Bowel Sounds, Soft, Non-Tender Back Exam: Normal Inspection, Full Range of Motion Extremities: Normal Inspection, Normal Range of Motion, Non-Tender, No Pedal Edema Neurological: No New Focal Deficit Psy/Mental Status: Alert, Normal Affect, Normal Mood Sepsis Event Note - Evaluation Sepsis Screening Result: No Definite Risk - Focused Exam Vital Signs: Vital Signs Temp Pulse Pulse Resp BP BP Pulse Ox 02/07/20 08:50 73 147/68 H 02/07/20 08:03 98.4 F 73 18 125/58 L 93 L 02/07/20 03:56 97.8 F 71 18 107/51 L 95 02/07/20 00:10 98.1 F 74 19 141/64 H 95 Date Exam was Performed: 02/07/20 Time Exam was Performed: 11:24 - Problem List & Annotations (1) HTN (hypertension) SNOMED Code(s): 47270732 Code(s): I10 - ESSENTIAL (PRIMARY) HYPERTENSION Status: Acute Current Visit: Yes (2) Seizure disorder SNOMED Code(s): 591535522 Code(s): G40.909 - EPILEPSY, UNSP, NOT INTRACTABLE, WITHOUT STATUS EPILEPTICUS Status: Acute Current Visit: Yes (3) Dizziness SNOMED Code(s): 521793920, 308230218 Code(s): R42 - DIZZINESS AND GIDDINESS Status: Acute Current Visit: Yes (4) Post concussion syndrome SNOMED Code(s): 08971064 Code(s): F07.81 - POSTCONCUSSIONAL SYNDROME Status: Acute Current Visit: Yes (5) Fall SNOMED Code(s): 7858722, 481960623 Code(s): W19.XXXA - UNSPECIFIED FALL, INITIAL ENCOUNTER Status: Acute Current Visit: No Qualifiers: Encounter type: initial encounter Qualified Code(s): W19.XXXA - Unspecified fall, initial encounter (6) Scalp laceration SNOMED Code(s): 398244934 Code(s): S01.01XA - LACERATION WITHOUT FOREIGN BODY OF SCALP, INITIAL ENCOUNTER Status: Acute Current Visit: No - Problem List Review Problem List Initiated/Reviewed/Updated: Yes - My Orders Last 24 Hours: My Active Orders 02/06/20 16:16 Telemetry Monitoring [Cardiac Monitoring] [RC] Q8H 02/06/20 16:17 Acetaminophen [Tylenol Extra Strength] 1,000 mg PO Q4H PRN Resuscitation Status Routine 02/06/20 16:33 Antiembolic Devices [RC] PER UNIT ROUTINE Oxygen Therapy [RC] PRN VTE/DVT Education [RC] PER UNIT ROUTINE Vital Signs [RC] Q4H PT Evaluation and Treatment [CONS] Routine Ondansetron [Zofran] 4 mg IVPUSH Q4H PRN Sodium Chloride 0.9% [Saline Flush] 2.5 ml FLUSH ASDIRECTED PRN Saline Lock Insert [OM.PC] Routine Sequential Compression Device [OM.PC] Per Unit Routine 02/06/20 21:00 Doxazosin [Cardura] 4 mg PO BEDTIME amLODIPine [Norvasc] 10 mg PO BEDTIME 02/06/20 Lunch Heart Healthy Diet [DIET] 02/07/20 08:41 carBAMazepine [TEGretol] 100 mg PO BEDTIME 02/07/20 09:00 Losartan [Cozaar] 100 mg PO DAILY atenoloL [Tenormin] 50 mg PO DAILY carBAMazepine [TEGretol] 50 mg PO DAILY - Plan Plan:: This 84 year old female admitted with dizziness, suspected secondary to BPPV, dehydration, or post-concussion 1. Dizziness - Could be multifactorial, has nystagmus to L. BPPV vs post concussion syndrome from fall vs mild dehydration. - Consult PT to evaluate vestibular - Monitor on telemetry for cardiac source, though less likely - Dizziness improved with some BP control. 2. HTN - BP quite elevated, will restart home medications of Amlodipine, Doxazosin, Losartan and Atenolol - Hydralazine PRN - BP better overnight, will monitor this morning, may need to add scheduled Hydralazine. 3. Seizure disorder - Continue Carbamazepine per home dosing VTE prophylaxis: SCDs Dispo: possible dc later today if BP remains controlled.
--- NOTE | 2020-02-07 14:33 | PCM.DCSUM1 ---
Discharge Summary - Hospital Course Brief History: This 84 year old with pmh of HTN, seizures and recent fall presented to the ED with complaints of dizziness since she fell last week. She reports last week she was watering her ballard and had a mistep on the stairs outside of her house, falling and hitting her head. CT of head was negative, but did have laceration to posterior scalp with was stapled. She was discharged home. She reports since she has been at home she is been very very dizzy unable to ambulate without holding on to furniture and needing to walk with her head straight. She reports dizziness is worse when she turns her head to the left. Denies vision changes, no blurred or double vision. No headache. hematoma to scalp has very little pain. Has chronic neck, should and back pain. No chest pain or SOB. No abdominal pain or urinary concerns. No swelling or other neurological deficits. In the ED labwork obtained which revealed mild hyponatremia which is near baseline. Cl 95. BUN 17, Cr 0.6 UA negative. troponin negative. EKG SR, new inverted t waves from previous EKG, no arrhythmias. BP noted to be elevated in the ED, 170-200/80-90s. Orthostatic VS stable, no significant changes noted. Head CT negative for acute intracranial process, posterior scalp hematoma noted. CXR negative. She will be admitted for dizziness post fall. PCP, Dr Licea Diagnosis: Stroke: No - Discharge Data Discharge Date: 02/07/20 Discharge Disposition: Home, W Home Health Agency 06 Condition: Good - Referral to Home Health Date of Face to Face Encounter: 02/07/20 Reason for Homebound Status: Christy is homebound needing caregiver to assist with leaving the house as well as an assistive device, walker, to ambulate safely. Primary Care Physician: Darrin Licea MD Skilled Need: Christy is in need of chcf assessment to help monitor blood pressure and dizziness. She would also benefit from PT/OT evaluation to monitor gait instability and home safety evaluation. - Discharge Diagnosis/Problem(s) (1) HTN (hypertension) SNOMED Code(s): 85493165 ICD Code: I10 - ESSENTIAL (PRIMARY) HYPERTENSION Status: Acute Current Visit: Yes (2) Seizure disorder SNOMED Code(s): 957705870 ICD Code: G40.909 - EPILEPSY, UNSP, NOT INTRACTABLE, WITHOUT STATUS EPILEPTICUS Status: Acute Current Visit: Yes (3) Dizziness SNOMED Code(s): 464766745, 369515871 ICD Code: R42 - DIZZINESS AND GIDDINESS Status: Acute Current Visit: Yes (4) Post concussion syndrome SNOMED Code(s): 38784583 ICD Code: F07.81 - POSTCONCUSSIONAL SYNDROME Status: Acute Current Visit : Yes (5) Fall SNOMED Code(s): 3932398, 936108323 ICD Code: W19.XXXA - UNSPECIFIED FALL, INITIAL ENCOUNTER Status: Acute Current Visit: No Qualifiers: Encounter type: initial encounter Qualified Code(s): W19.XXXA - Unspecified fall, initial encounter (6) Scalp laceration SNOMED Code(s): 556326971 ICD Code: S01.01XA - LACERATION WITHOUT FOREIGN BODY OF SCALP, INITIAL ENCOUNTER Status: Acute Current Visit: No - Patient Summary/Data Consults: Consultations 02/06/20 16:33 PT Evaluation and Treatment [CONS] Routine Hospital Course: Admission diagnoses: Dizziness HTN Discharge Diagonses: Dizziness, suspected BPPV HTN- improved Other PMH recent fall with scalp laceration Seizure disorder Christy was admitted secondary to dizziness she started to experience after her fall last week. She was evaluated by PT for vestibular concerns with nystagmus to the L. Anamika maneuver performed with success and dizziness nearly gone. BP noted to be quite elevated on arrival, she was given Labetalol as well as Hydralazine. This morning BP normalized and home medications kept BP controlled. She is feeling much better and is eager to be discharged home. I will send her home to continue home medications, monitoring BP as she was previously. I did consult Home Health to monitor as well, patient will consider this. She is to follow up with ED as previously scheduled for staple removal and then follow up with PCP to review BP) medications and monitor improvement. OT outpatient referral given if dizziness returns. She was instructed to call to OT outpatient at [facility] to be seen quickly if dizziness returns. She verbalized agreement with this. - Patient Instructions Diet: Regular Diet as Tolerated Activity: No Strenuous Activities Driving: Do Not Drive Showering/Bathing: May Shower Notify Provider of: Fever, Increased Pain, Swelling and Redness, Drainage, Nausea and/or Vomiting - Discharge Plan *PRESCRIPTION DRUG MONITORING PROGRAM REVIEWED*: Not Applicable *COPY OF PRESCRIPTION DRUG MONITORING REPORT IN PATIENT ANNAMARIA: Not Applicable Home Medications: Home Meds Acetaminophen [Tylenol Extra Strength] 1,000 mg PO Q4H PRN 02/28/18 [History] Losartan Potassium [Cozaar] 100 mg PO DAILY 02/28/18 [History] amLODIPine Besylate [Amlodipine Besylate] 10 mg PO BEDTIME 02/28/18 [History] atenoloL [Atenolol] 100 mg PO DAILY 02/28/18 [History] Doxazosin [Cardura] 4 mg PO BEDTIME 02/06/20 [History] carBAMazepine [Carbamazepine] 50 mg PO DAILY 02/06/20 [History] carBAMazepine [Carbamazepine] 100 mg PO BEDTIME 02/06/20 [History] gemfibroziL [Gemfibrozil] 600 mg PO BID 02/06/20 [History] Oxygen Therapy Mode: Room Air Referrals: Darrin Licea MD [Primary Care Provider] - 02/14/20 1:30 pm - Discharge Summary/Plan Comment DC Time >30 min.: No - Patient Data Vitals - Most Recent: Last Vital Signs Temp 98.8 F 02/07/20 11:51 Pulse 64 02/07/20 11:51 Resp 17 02/07/20 11:51 BP 105/48 L 02/07/20 14:27 Pulse Ox 95 02/07/20 11:51 Orthostatic Blood Pressure [ 171/72 Standing] Orthostatic Blood Pressure [ 174/80 Sitting] Orthostatic Blood Pressure [ 176/76 Supine] Weight - Most Recent: 72.575 kg I&O - Last 24 hours: Intake & Output 02/06/20 02/07/20 02/07/20 22:59 06:59 14:59 Intake Total 1262 Output Total 1900 Balance -638 Lab Results - Last 24 hrs: Laboratory Results - last 24 hr 02/06/20 02/06/20 02/06/20 Range/Units 14:19 14:19 14:19 WBC 5.61 (4.0-11.0) K/uL RBC 3.91 L (4.30-5.90) M/uL Hgb 11.9 L (12.0-16.0) g/dL Hct 35.2 L (36.0-46.0) % MCV 90.0 (80.0-98.0) fL MCH 30.4 (27.0-32.0) pg MCHC 33.8 (31.0-37.0) g/dL RDW Std Deviation 42.9 (28.0-62.0) fl RDW Coeff of [place] 13 (11.0-15.0) % Plt Count 293 (150-400) K/uL MPV 8.80 (7.40-12.00) fL Neut % (Auto) 63.0 (48.0-80.0) % Lymph % (Auto) 21.7 (16.0-40.0) % [place] % (Auto) 11.4 (0.0-15.0) % Eos % (Auto) 3.4 (0.0-7.0) % Baso % (Auto) 0.5 (0.0-1.5) % Neut # (Auto) 3.5 (1.4-5.7) K/uL Lymph # (Auto) 1.2 (0.6-2.4) K/uL [place] # (Auto) 0.6 (0.0-0.8) K/uL Eos # (Auto) 0.2 (0.0-0.7) K/uL Baso # (Auto) 0.0 (0.0-0.1) K/uL Nucleated RBC % 0.0 /100WBC Nucleated RBCs # 0 K/uL INR 0.99 Sodium 131 L (136-145) mmol/L Potassium 4.2 (3.5-5.1) mmol/L Chloride 95 L (98-107) mmol/L Carbon Dioxide 27.4 (21.0-32.0) mmol/L BUN 17 (7.0-18.0) mg/dL Creatinine 0.6 (0.6-1.0) mg/dL Est Cr Clr Drug Dosing 59.19 mL/min Estimated GFR (MDRD) > 60.0 ml/min Glucose 112 H (74-106) mg/dL Calcium 9.4 (8.5-10.1) mg/dL Total Bilirubin 0.4 (0.2-1.0) mg/dL AST 15 (15-37) IU/L ALT 18 (14-63) IU/L Alkaline Phosphatase 84 (46-116) U/L Troponin I < 0.050 (0.000-0.056) ng/mL Total Protein 7.6 (6.4-8.2) g/dL Albumin 3.9 (3.4-5.0) g/dL Globulin 3.7 (2.6-4.0) g/dL Albumin/Globulin Ratio 1.1 (0.9-1.6) Urine Color Urine Appearance Urine pH (5.0-8.0) Ur Specific [place] (1.001-1.035) Urine Protein (NEGATIVE) mg/dL Urine Glucose (UA) (NEGATIVE) mg/dL Urine Ketones (NEGATIVE) mg/dL Urine Occult Blood (NEGATIVE) Urine Nitrite (NEGATIVE) Urine Bilirubin (NEGATIVE) Urine Urobilinogen (<2.0) EU/dL Ur Leukocyte Esterase (NEGATIVE) Urine RBC (0-2/HPF) Urine WBC (0-5/HPF) Ur Epithelial Cells (NONE-FEW) Urine Bacteria (NEGATIVE) 02/06/20 02/07/20 Range/Units 14:30 05:54 WBC (4.0-11.0) K/uL RBC (4.30-5.90) M/uL Hgb (12.0-16.0) g/dL Hct (36.0-46.0) % MCV (80.0-98.0) fL MCH (27.0-32.0) pg MCHC (31.0-37.0) g/dL RDW Std Deviation (28.0-62.0) fl RDW Coeff of [place] (11.0-15.0) % Plt Count (150-400) K/uL MPV (7.40-12.00) fL Neut % (Auto) (48.0-80.0) % Lymph % (Auto) (16.0-40.0) % [place] % (Auto) (0.0-15.0) % Eos % (Auto) (0.0-7.0) % Baso % (Auto) (0.0-1.5) % Neut # (Auto) (1.4-5.7) K/uL Lymph # (Auto) (0.6-2.4) K/uL [place] # (Auto) (0.0-0.8) K/uL Eos # (Auto) (0.0-0.7) K/uL Baso # (Auto) (0.0-0.1) K/uL Nucleated RBC % /100WBC Nucleated RBCs # K/uL INR Sodium 132 L (136-145) mmol/L Potassium 3.8 (3.5-5.1) mmol/L Chloride 97 L (98-107) mmol/L Carbon Dioxide 26.5 (21.0-32.0) mmol/L BUN 19 H (7.0-18.0) mg/dL Creatinine 0.6 (0.6-1.0) mg/dL Est Cr Clr Drug Dosing 59.19 mL/min Estimated GFR (MDRD) > 60.0 ml/min Glucose 102 (74-106) mg/dL Calcium 8.9 (8.5-10.1) mg/dL Total Bilirubin (0.2-1.0) mg/dL AST (15-37) IU/L ALT (14-63) IU/L Alkaline Phosphatase (46-116) U/L Troponin I (0.000-0.056) ng/mL Total Protein (6.4-8.2) g/dL Albumin (3.4-5.0) g/dL Globulin (2.6-4.0) g/dL Albumin/Globulin Ratio (0.9-1.6) Urine Color YELLOW Urine Appearance CLEAR Urine pH 7.0 (5.0-8.0) Ur Specific [place] 1.015 (1.001-1.035) Urine Protein NEGATIVE (NEGATIVE) mg/dL Urine Glucose (UA) NEGATIVE (NEGATIVE) mg/dL Urine Ketones NEGATIVE (NEGATIVE) mg/dL Urine Occult Blood TRACE-INTACT H (NEGATIVE) Urine Nitrite NEGATIVE (NEGATIVE) Urine Bilirubin NEGATIVE (NEGATIVE) Urine Urobilinogen 0.2 (<2.0) EU/dL Ur Leukocyte Esterase NEGATIVE (NEGATIVE) Urine RBC 0-2 (0-2/HPF) Urine WBC 0-2 (0-5/HPF) Ur Epithelial Cells FEW (NONE-FEW) Urine Bacteria FEW (NEGATIVE) Med Orders - Current: Current Medications Acetaminophen (Tylenol Extra Strength) 1,000 mg PO Q4H PRN PRN Reason: Pain Last Admin: 02/07/20 10:42 Dose: 1,000 mg Amlodipine Besylate (Norvasc) 10 mg PO BEDTIME [facility]QU[facility] Last Admin: 02/06/20 21:08 Dose: 10 mg Atenolol (Tenormin) 50 mg PO DAILY [facility] Last Admin: 02/07/20 08:50 Dose: 50 mg Carbamazepine (Tegretol) 100 mg PO BEDTIME [facility] Carbamazepine (Tegretol) 50 mg PO DAILY [facility] Last Admin: 02/07/20 08:53 Dose: 50 mg Doxazosin Mesylate (Cardura) 4 mg PO BEDTIME [facility] Last Admin: 02/06/20 21:19 Dose: 4 mg Hydralazine HCl (Apresoline) 20 mg IVPUSH Q4H PRN PRN Reason: Hypertension Lactated Ringer's (Ringers, Lactated) 1,000 mls @ 100 mls/hr IV ASDIRECTED [facility] Stop: 02/07/20 23:00 Last Admin: 02/06/20 14:42 Dose: 100 mls/hr Losartan Potassium (Cozaar) 100 mg PO DAILY [facility] Last Admin: 02/07/20 08:50 Dose: 100 mg Ondansetron HCl (Zofran) 4 mg IVPUSH Q4H PRN PRN Reason: Nausea Sodium Chloride (Saline Flush) 2.5 ml FLUSH ASDIRECTED PRN PRN Reason: Keep Vein Open Discontinued Medications Carbamazepine (Tegretol Xr) 100 mg PO BEDTIME [facility] Last Admin: 02/06/20 21:20 Dose: 100 mg Carbamazepine (Tegretol Xr) 50 mg PO DAILY [facility] Hydralazine HCl (Apresoline) 25 mg PO Q6H PRN PRN Reason: SBP>180/DBP 110 Last Admin: 02/06/20 17:47 Dose: 25 mg Hydralazine HCl (Apresoline) 20 mg IVPUSH ONETIME ONE Stop: 02/06/20 19:04 Last Admin: 02/06/20 19:59 Dose: 20 mg Labetalol HCl (Normodyne) 5 mg IVPUSH ONETIME ONE; Protocol Stop: 02/06/20 18:32 Last Admin: 02/06/20 18:52 Dose: 5 mg Lorazepam (Ativan) 1 mg IVPUSH ONETIME ONE Stop: 02/06/20 23:36 Last Admin: 02/07/20 00:16 Dose: 1 mg Sodium Chloride (Saline Flush) 10 ml FLUSH ASDIRECTED PRN PRN Reason: Keep Vein Open Sodium Chloride (Saline Flush) 2.5 ml FLUSH ASDIRECTED PRN PRN Reason: Keep Vein Open Sodium Chloride (Normal Saline) 10 ml IV ASDIRECTED PRN PRN Reason: IV Use - Exam General: Reports: Alert, Oriented, Cooperative Lungs: Reports: Clear to Auscultation, Normal Respiratory Effort Cardiovascular: Reports: Regular Rate, Regular Rhythm GI/Abdominal Exam: Normal Bowel Sounds, Soft, Non-Tender Extremities: Normal Inspection, Normal Range of Motion, Non-Tender, No Pedal Edema Neurological: Reports: No New Focal Deficit, Other (no further dizziness, laying on left side and able to turn head without dizziness ) Psy/Mental Status: Reports: Alert, Normal Affect, Normal Mood
== END 2020-02-07 15:40 | disposition home health service (06) ==
LOC: MW.ED 13:48 → MW.MS 16:13
PROVIDERS: ADMIT Student in an Organized Health Care Education/Training Program; ATTEND Student in an Organized Health Care Education/Training Program
DX: I10 Essential (primary) hypertension (principal); G40.909 Epilepsy, unspecified, not intractable, without status epilepticus; F07.81 Postconcussional syndrome; E87.1 Hypo-osmolality and hyponatremia; S01.01XA Laceration without foreign body of scalp, initial encounter; Z79.899 Other long term (current) drug therapy; W19.XXXA Unspecified fall, initial encounter
CPT/HCPCS: 36415; 70450; 71045; 80048; 80053; 81001; 84484; 85025; 85610; 93005; 95992; 96360; 96361; 97161; 99285; A9270; J0360; J2060; J3490; J7120; 96374; 96375; 96376; 99284; G0378

== ENCOUNTER 2020-02-07 21:37 | Emergency (ER) | payer MEDICARE, OTHER ==
--- NOTE | 2020-02-07 22:06 | EDM.PDOC ---
ED HPI GENERAL MEDICAL PROBLEM - General Chief Complaint: Cardiovascular Problem Stated Complaint: HIGH BLOOD PRESSURE Time Seen by Provider: 02/07/20 21:40 Source of Information: Reports: Patient History Limitations: Reports: No Limitations - History of Present Illness INITIAL COMMENTS - FREE TEXT/NARRATIVE: History of present illness: [Patient is 84-year-old female who was just discharged earlier today who presents with elevated blood pressure. She had a fall about 5 days ago sustaining a laceration to the posterior scalp. She has prabhakar in that area. Since that time she had had some dizziness. She presented back to the ER, had a CT scan of the head along with lab work, was admitted for dizziness status post fall. Noted to have nystagmus based on the discharge summary, Anamika maneuver was performed and her dizziness resolved. She had hypertension during her admission which was treated with hydralazine among her other regularly scheduled medications. She said her blood pressure was running high tonight, over 200 systolic, she took her regularly scheduled nighttime medications. She has no symptoms. She denies any chest pain, no shortness of breath, no blurry vision, no focal neuro deficit, no dizziness. Her daughter was worried about how high her blood pressure was and encouraged her to come in and get checked out.] Review of systems: As per history of present illness and below otherwise all systems reviewed and negative. Past medical history: As per history of present illness and as reviewed below otherwise noncontributory. Surgical history: As per history of present illness and as reviewed below otherwise noncontributory. Social history: No reported history of drug or alcohol abuse. Family history: As per history of present illness and as reviewed below otherwise noncontributory. Physical exam: General: Awake, alert, no acute distress, A&O X3. HEENT: dry/crusted scab over posterior scalp hematoma. no active bleeding, normocephalic, pupils reactive, negative for conjunctival pallor or scleral icterus, mucous membranes moist, throat clear, neck supple, nontender, trachea midline. Lungs: Clear to auscultation, breath sounds equal bilaterally, chest nontender. Heart: RRR, normal S1S2, no JVD. Abdomen: Soft, nondistended, nontender. Negative for masses or hepatosplenomegaly. Pelvis: Stable nontender. 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: Deferred. Rectal: Deferred. Extremities: Atraumatic, no edema, Neurovascular unremarkable. Neuro: Motor and sensory grossly intact throughout. Exam nonfocal. Diagnostics: [] Therapeutics: [] Impression: [] Plan: [] Definitive disposition and diagnosis as appropriate pending reevaluation and review of above. - Related Data Allergies Allergy/AdvReac Type Severity Reaction Status Date / Time No Known Allergies Allergy Verified 02/07/20 21:56 Home Meds: Home Meds Acetaminophen [Tylenol Extra Strength] 1,000 mg PO Q4H PRN 02/28/18 [History] Losartan Potassium [Cozaar] 100 mg PO DAILY 02/28/18 [History] amLODIPine Besylate [Amlodipine Besylate] 10 mg PO BEDTIME 02/28/18 [History] atenoloL [Atenolol] 100 mg PO DAILY 02/28/18 [History] Doxazosin [Cardura] 4 mg PO BEDTIME 02/06/20 [History] carBAMazepine [Carbamazepine] 50 mg PO DAILY 02/06/20 [History] carBAMazepine [Carbamazepine] 100 mg PO BEDTIME 02/06/20 [History] gemfibroziL [Gemfibrozil] 600 mg PO BID 02/06/20 [History] hydrALAZINE HCl [Hydralazine HCl] 10 mg PO QID PRN #20 tablet 02/07/20 [Rx] Past Medical History - Past Health History Medical/Surgical History: Denies Medical/Surgical History Cardiovascular History: Reports: Hypertension Respiratory History: Reports: None Gastrointestinal History: Reports: None 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 History: Reports: 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: Musculoskeletal History: Reports: Back Pain, Chronic Other Musculoskeletal History: Has spinal stenosis Neurological History: Reports: None Psychiatric History: Reports: None Endocrine/Metabolic History: Reports: None Immunologic History: Reports: None Oncologic (Cancer) History: Reports: None Dermatologic History: Reports: None - Infectious Disease History Infectious Disease History: Reports: Chicken Pox, Hepatitis A, Measles, Mumps - Past Surgical History HEENT Surgical History: Reports: Adenoidectomy, Tonsillectomy GI Surgical History: Reports: None Musculoskeletal Surgical History: Reports: Arthroscopic Knee Other Musculoskeletal Surgeries/Procedures:: bilateral knee replacement Social & Family History - Family History Family Medical History: Noncontributory - Caffeine Use Caffeine Use: Reports: Coffee ED ROS GENERAL - Review of Systems Review Of Systems: Comprehensive ROS is negative, except as noted in HPI. ED EXAM, GENERAL - Physical Exam Exam: See Below (see h and p) Course - Vital Signs Text/Narrative:: Patient is asymptomatic and on repeat blood pressure measurements here her blood pressure is in a much more reasonable range. Given her lack of symptoms, recent work-up, I do not believe further work-up or evaluation is indicated at this time. I gave her prescription for hydralazine to be used as needed for blood pressure greater than 165 systolic. I told her to continue taking her regular medication as previously prescribed and only use this medication in between her morning and evening doses on an as-needed basis until she can follow -up with her PCP to determine if she needs changes to her antihypertensive regimen. Patient understands this plan, is agreeable with it, and stable and well-appearing at discharge. Return precautions provided should she develop new or worsening symptoms including blurry vision, headache, chest pain, shortness of breath, etc. Last Recorded V/S: Last Vital Signs Temp 36.1 C 02/07/20 21:51 Pulse 85 02/07/20 21:51 Resp 18 02/07/20 21:51 BP 159/78 H 02/07/20 21:51 Pulse Ox 95 02/07/20 21:51 Departure - Departure Time of Disposition: 22:08 Disposition: Home, Self-Care 01 Condition: Good Clinical Impression: HTN (hypertension) Prescriptions: hydrALAZINE HCl [Hydralazine HCl] 10 mg PO QID PRN #20 tablet PRN Reason: Hypertension Instructions: Hypertension, Adult, [id number] Referrals: Darrin Licea MD [Primary Care Provider] - Forms: ED Department Discharge Additional Instructions: The following information is given to patients seen in the emergency department who are being discharged to home. This information is to outline your options for follow-up care. We provide all patients seen in our emergency department with a follow-up referral. The need for follow-up, as well as the timing and circumstances, are variable depending upon the specifics of your emergency department visit. If you don't have a primary care physician on staff, we will provide you with a referral. We always advise you to contact your personal physician following an emergency department visit to inform them of the circumstance of the visit and for follow-up with them and/or the need for any referrals to a consulting specialist. The emergency department will also refer you to a specialist when appropriate. This referral assures that you have the opportunity for follow-up care with a specialist. All of these measure are taken in an effort to provide you with optimal care, which includes your follow-up. Under all circumstances we always encourage you to contact your private physician who remains a resource for coordinating your care. When calling for follow-up care, please make the office aware that this follow-up is from your recent emergency room visit. If for any reason you are refused follow-up, please contact the [facility] Emergency Department at and asked to speak to the emergency department charge nurse. [facility] [address] [place] [address] [id number] [facility] [address] [place] [id number] Sepsis Event Note (ED) - Evaluation Sepsis Screening Result: No Definite Risk - Focused Exam Vital Signs: Vital Signs Temp Pulse Resp BP Pulse Ox 02/07/20 21:51 36.1 C 85 18 159/78 H 95
== END 2020-02-07 22:20 | disposition home or self-care (01) ==
LOC: MW.ED 21:37
DX: I10 Essential (primary) hypertension (principal); Z79.899 Other long term (current) drug therapy
CPT/HCPCS: 99282; 99283

== ENCOUNTER 2020-02-12 15:55 | Emergency (ER) | payer MEDICARE, OTHER ==
[2020-02-12] MEDS ORDERED: Hydrogen Peroxide 3% Top Soln 473 ML Bottle ONE (16:18)
--- NOTE | 2020-02-12 17:13 | EDM.PDOC ---
ED HPI GENERAL MEDICAL PROBLEM - General Chief Complaint: Wound Recheck Stated Complaint: STAPLE REMOVED Time Seen by Provider: 02/12/20 16:05 - History of Present Illness INITIAL COMMENTS - FREE TEXT/NARRATIVE: History of present illness: 84-year-old female presenting for staple remover after fall with scalp laceration/head injury. 9 prabhakar placed on February 01 at the time of the injury. Patient reported that the hair was matted in the area and she attempted to clean it with peroxide but could not straighten out the hair. The nurse removed the prabhakar, however found that the wound was still open and gaping and appeared deep. Review of systems: As per history of present illness and below otherwise all systems reviewed and negative. Past medical history: As per history of present illness and as reviewed below otherwise noncontributory. Surgical history: As per history of present illness and as reviewed below otherwise noncontributory. Social history: No reported history of drug or alcohol abuse. Family history: As per history of present illness and as reviewed below otherwise noncontributory. Physical exam: GEN: no acute distress, well appearing HEENT: Posterior scalp wound, circular with irregular margins, with scab formation over the margins, diameter 2-3 cm, otherwise normocephalic, mucous membranes moist, Neck: supple, nontender, trachea midline. Lungs: No respiratory distress. Heart: RRR Abdomen: Soft, nondistended, nontender. Back: nontender Extremities: Atraumatic. Neurovascularly intact. Neuro: Awake, alert, oriented. Neuro Exam nonfocal. Skin: warm, dry, no lesions Psych: Normal mood and affect Diagnostics: [] Therapeutics: [] MDM: Impression: [] Plan: Open wound, not well healed after 10 days of prabhakar. Prabhakar removed which show gaping wound that is deep with hematoma. Hematoma evacuation was performed by myself. The galea was visualized and deep suture placed to reapproximate. Irrigated profusely with peroxide and removed several hematomas. The wound was reclosed with 3 of the 3-0 Prolene sutures. A wick of iodoform gauze was left in place as the wound continued to bleed, to avoid hematoma formation deep to the laceration. A pressure dressing was placed as well. The patient has follow-up with her primary care physician in 2 days. 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 Definitive disposition and diagnosis as appropriate pending reevaluation and review of above. - Related Data Allergies Allergy/AdvReac Type Severity Reaction Status Date / Time No Known Allergies Allergy Verified 02/12/20 16:24 Home Meds: Home Meds Acetaminophen [Tylenol Extra Strength] 1,000 mg PO Q4H PRN 02/28/18 [History] Losartan Potassium [Cozaar] 100 mg PO DAILY 02/28/18 [History] amLODIPine Besylate [Amlodipine Besylate] 10 mg PO BEDTIME 02/28/18 [History] atenoloL [Atenolol] 100 mg PO DAILY 02/28/18 [History] Doxazosin [Cardura] 4 mg PO BEDTIME 02/06/20 [History] carBAMazepine [Carbamazepine] 50 mg PO DAILY 02/06/20 [History] carBAMazepine [Carbamazepine] 100 mg PO BEDTIME 02/06/20 [History] gemfibroziL [Gemfibrozil] 600 mg PO BID 02/06/20 [History] hydrALAZINE HCl [Hydralazine HCl] 10 mg PO QID PRN #20 tablet 02/07/20 [Rx] Past Medical History - Past Health History Medical/Surgical History: Denies Medical/Surgical History Cardiovascular History: Reports: Hypertension Respiratory History: Reports: None Gastrointestinal History: Reports: None 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 History: Reports: 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: Musculoskeletal History: Reports: Back Pain, Chronic Other Musculoskeletal History: Has spinal stenosis Neurological History: Reports: None Psychiatric History: Reports: None Endocrine/Metabolic History: Reports: None Hematologic History: Reports: None Immunologic History: Reports: None Oncologic (Cancer) History: Reports: None Dermatologic History: Reports: None - Infectious Disease History Infectious Disease History: Reports: None - Past Surgical History Head Surgeries/Procedures: Reports: None HEENT Surgical History: Reports: Adenoidectomy, Tonsillectomy GI Surgical History: Reports: None Musculoskeletal Surgical History: Reports: Arthroscopic Knee Other Musculoskeletal Surgeries/Procedures:: bilateral knee replacement Social & Family History - Family History Family Medical History: Noncontributory - Tobacco Use Smoking Status *Q: Never Smoker - Caffeine Use Caffeine Use: Reports: Coffee - Recreational Drug Use Recreational Drug Use: No ED ROS GENERAL - Review of Systems Review Of Systems: See Below (See dictation) ED EXAM, SKIN/RASH Exam: See Below (See dictation) ED WOUND PROCEDURES - Laceration/Wound Repair Posterior Occipital Hand Laceration/Wound Length In cm: 3 Appearance: Irregular, Other (Deep) Skin Prep: Other (Peroxide) Wound Exploration, Debridement, Revision: Wound Explored, Explored to Base, Other (Multiple hematomas evacuated) Suture Size: 3-0 # of Sutures: 3 Suture Type: Prolene, Interrupted, Other (Monocryl) Suture Size: 4-0 # of Sutures: 1 (Galea reapproximated) Muscel/Fascia Repaired With: Vicryl Drain Placement: Yes Sterile Dressing Applied: Provider (Compression dressing) Complications: None Progress/Comments: Iodoform gauze wick left in place to allow for continued bleeding/drainage out of the hematoma pocket as the patient is on anticoagulation. Compression dressing also placed over the scalp wound to avoid hematoma reaccumulation. Course - Vital Signs Last Recorded V/S: Last Vital Signs Temp 97.2 F 02/12/20 16:24 Pulse 84 02/12/20 16:24 Resp 18 02/12/20 16:24 BP 157/68 H 02/12/20 16:24 Pulse Ox 97 02/12/20 16:24 - Orders/Labs/Meds Meds: Medications Discontinued Medications Generic Name Dose Route Start Last Admin Trade Name Susan PRN Reason Stop Dose Admin Hydrogen Peroxide Confirm 02/12/20 16:18 Hydrogen Peroxide Administered 02/12/20 16:19 Dose 473 ml .ROUTE .STK-MED ONE Departure - Departure Time of Disposition: 17:16 Disposition: Home, Self-Care 01 Clinical Impression: S/P evacuation of hematoma, Non-healing wound Scalp wound Qualifiers: Encounter type: sequela Open wound type: laceration Foreign body presence: without foreign body Qualified Code(s): S01.01XS - Laceration without foreign body of scalp, sequela - Discharge Information Instructions: Mechanical Wound Debridement, Care After, Wound Packing, Wound Dehiscence, [id number], Mechanical Wound Debridement, Sutured Wound Care, Laceration Care, Adult, [id number], Sutures, [place], or Adhesive Wound Closure, [id number] Referrals: Darrin Licea MD [Primary Care Provider] - 2 Days (Please ensure that the scalp laceration is reevaluated, that the wick is removed and that the bleeding has stopped and no hematoma has formed in the interim. Your doctor may also need to refer you to a surgeon or plastic surgeon to revise the wound once it has healed.) Forms: ED Department Discharge Additional Instructions: The following information is given to patients seen in the emergency department who are being discharged to home. This information is to outline your options for follow-up care. We provide all patients seen in our emergency department with a follow-up referral. The need for follow-up, as well as the timing and circumstances, are variable depending upon the specifics of your emergency department visit. If you don't have a primary care physician on staff, we will provide you with a referral. We always advise you to contact your personal physician following an emergency department visit to inform them of the circumstance of the visit and for follow-up with them and/or the need for any referrals to a consulting specialist. The emergency department will also refer you to a specialist when appropriate. This referral assures that you have the opportunity for follow-up care with a specialist. All of these measure are taken in an effort to provide you with optimal care, which includes your follow-up. Under all circumstances we always encourage you to contact your private physician who remains a resource for coordinating your care. When calling for follow-up care, please make the office aware that this follow-up is from your recent emergency room visit. If for any reason you are refused follow-up, please contact the [facility] Emergency Department at and asked to speak to the emergency department charge nurse. Please follow-up with your primary care physician at your scheduled appointment in 2 days to have your wound rechecked and to remove the packing and reassess bleeding and to see if any hematoma has formed. Return to the emergency department immediately if you have any worsening pain, headache, confusion, or if the bleeding does not stop. Sepsis Event Note (ED) - Evaluation Sepsis Screening Result: No Definite Risk - Focused Exam Vital Signs: Vital Signs Temp Pulse Resp BP Pulse Ox 02/12/20 16:24 97.2 F 84 18 157/68 H 97
== END 2020-02-12 17:30 | disposition home or self-care (01) ==
LOC: MW.ED 15:55
DX: S01.01XA Laceration without foreign body of scalp, initial encounter (principal); I10 Essential (primary) hypertension; Z79.899 Other long term (current) drug therapy; W19.XXXA Unspecified fall, initial encounter
CPT/HCPCS: 12002; 99282-25

== ENCOUNTER 2022-06-16 13:13 | Emergency (ER) | payer MEDICARE, OTHER ==
[2022-06-16 16:20] LABS: POTASSIUM,K 4.7 mmol/L (3.5-5.1)
[2022-06-16] MEDS ORDERED: Aspirin 81 MG Tab.Chew PO ONE (16:28)
[2022-06-16] MEDS ORDERED: Heparin Sodium 5,000 Units/ML Vial IVPUSH STA (18:01)
[2022-06-16] MEDS ORDERED: Heparin Sodium/0.45% NaCl 500 ML IV SCH (18:15)
== END 2022-06-16 21:41 ==
LOC: MW.ED 13:13
DX: I21.4 Non-ST elevation (NSTEMI) myocardial infarction (principal); R55 Syncope and collapse; I10 Essential (primary) hypertension; Z79.899 Other long term (current) drug therapy; Z20.822 Contact with and (suspected) exposure to COVID-19
CPT/HCPCS: 36415; 70450; 71045; 80053; 82550; 83605; 83735; 84443; 84484; 85025; 85610; 96365; 96366; 99285; A9270; J1644; U0002; 93010; 99291

== ENCOUNTER 2022-10-06 14:29 | Emergency (ER) | payer MEDICARE, OTHER ==
[2022-10-06 16:00] LABS: CARBON DIOXIDE,CO2 25.8 mmol/L (21.0-32.0); POTASSIUM,K 3.9 mmol/L (3.5-5.1)
== END 2022-10-06 16:36 | disposition home or self-care (01) ==
LOC: MW.ED 14:29
DX: R56.9 Unspecified convulsions (principal); E87.6 Hypokalemia; I25.2 Old myocardial infarction; E78.00 Pure hypercholesterolemia, unspecified; I10 Essential (primary) hypertension; Z79.899 Other long term (current) drug therapy
CPT/HCPCS: 36415; 70450; 70450-26; 80048; 80053; 80156; 80307; 81001; 84484; 85025; 87086; 93005; 93010; 96365; 96375; 99284; 99285; 99285-25; A9270-GY; G0378; J0696; J1953; J7030; J7050; J7060; U0002

== ENCOUNTER 2022-10-06 18:59 | Observation (INO) | payer MEDICARE, OTHER ==
[2022-10-06] MEDS ORDERED: Sodium Chloride 0.9% 10 ML Syringe FLUSH PRN (19:09)
[2022-10-06] MEDS ORDERED: Sodium Chloride 0.9% 2.5 ML Syringe FLUSH PRN (19:09)
[2022-10-06 19:55] LABS: CARBON DIOXIDE,CO2 27.2 mmol/L (21.0-32.0); POTASSIUM,K 4.3 mmol/L (3.5-5.1)
[2022-10-06] MEDS ORDERED: cefTRIAXone 1 GM in Sodium Chloride 0.9% 50 ML IV ONE (20:39)
[2022-10-06] MEDS ORDERED: Sodium Chloride 0.9% 1,000 ML IV ONE (20:52)
[2022-10-06] MEDS ORDERED: Acetaminophen 325 MG Tab PO PRN (23:33)
[2022-10-06] MEDS ORDERED: Melatonin 3 MG Tab PO PRN (23:34)
[2022-10-06] MEDS ORDERED: Ondansetron 4 MG Tab.DIS PO PRN (23:34)
[2022-10-06] MEDS ORDERED: Sodium Chloride 0.9% 1,000 ML IV SCH (23:45)
[2022-10-07 07:36] LABS: CARBON DIOXIDE,CO2 26.9 mmol/L (21.0-32.0); POTASSIUM,K 3.5 mmol/L (3.5-5.1)
[2022-10-07] MEDS ORDERED: levETIRAcetam 500 MG Tab PO SCH (09:00)
[2022-10-07] MEDS ORDERED: Gemfibrozil 600 MG Tab PO SCH (09:00)
[2022-10-07] MEDS ORDERED: carBAMazepine 100 MG Tab.Chew PO SCH ×2 (09:00→21:00)
== END 2022-10-07 12:05 | disposition home or self-care (01) ==
LOC: MW.ED 18:59 → MW.MS 20:39
PROVIDERS: ADMIT Hospitalist; ATTEND Hospitalist
DX: R56.9 Unspecified convulsions (principal); E87.1 Hypo-osmolality and hyponatremia; I10 Essential (primary) hypertension; E78.00 Pure hypercholesterolemia, unspecified; M54.9 Dorsalgia, unspecified; G89.29 Other chronic pain; I21.4 Non-ST elevation (NSTEMI) myocardial infarction; E87.6 Hypokalemia; I67.82 Cerebral ischemia; I25.2 Old myocardial infarction; Z79.899 Other long term (current) drug therapy; Z86.16 Personal history of COVID-19; Z98.890 Other specified postprocedural states; Z20.822 Contact with and (suspected) exposure to COVID-19
CPT/HCPCS: 36415; 70450; 80048; 80053; 80156; 80307; 81001; 84484; 85025; 87086; 93005; 96365; 96375; 99285; A9270; G0378; J0696; J1953; J7030; J7050; J7060; U0002; 93010; 99222; 99284

== ENCOUNTER 2022-12-20 19:32 | Emergency (ER) | payer MEDICARE, OTHER ==
[2022-12-20] MEDS ORDERED: Sodium Chloride 0.9% 10 ML Syringe FLUSH PRN (19:33)
[2022-12-20] MEDS ORDERED: Sodium Chloride 0.9% 2.5 ML Syringe FLUSH PRN (19:33)
[2022-12-20 20:13] LABS: CARBON DIOXIDE,CO2 26.1 mmol/L (21.0-32.0); POTASSIUM,K 3.7 mmol/L (3.5-5.1)
== END 2022-12-20 21:35 | disposition home or self-care (01) ==
LOC: MW.ED 19:32
DX: R56.9 Unspecified convulsions (principal); E78.00 Pure hypercholesterolemia, unspecified; I10 Essential (primary) hypertension; Z86.16 Personal history of COVID-19; Z79.899 Other long term (current) drug therapy; Z79.82 Long term (current) use of aspirin
CPT/HCPCS: 36415; 71045; 80053; 81001; 84484; 85025; 99285; J3490; 93010; 99283

== ENCOUNTER 2022-12-20 22:37 | Inpatient (IN) | payer MEDICARE, OTHER ==
[2022-12-21] MEDS ORDERED: LORazepam 2 MG/ML SDV ONE (00:31)
[2022-12-21] MEDS ORDERED: WATER IV STA ×2 (00:35)
[2022-12-21] MEDS ORDERED: DEXTROSE 5% IV STA ×2 (00:35)
[2022-12-21] MEDS ORDERED: LEVETIRACETAM IV STA ×2 (00:35)
[2022-12-21] MEDS ORDERED: LORazepam 2 MG/ML SDV IVPUSH ONE (00:37)
[2022-12-21 06:51] LABS: CARBON DIOXIDE,CO2 25.5 mmol/L (21.0-32.0); POTASSIUM,K 3.5 mmol/L (3.5-5.1)
[2022-12-21] MEDS: Lacosamide 50 MG Tablet PO SCH ×2 (09:32→20:50)
[2022-12-21] MEDS: Losartan 50 MG Tab PO SCH (09:32)
[2022-12-21] MEDS: Aspirin 81 MG Tab.Chew PO SCH (09:32)
[2022-12-21] MEDS: Gemfibrozil 600 MG Tab PO SCH ×2 (09:32→20:38)
[2022-12-21] MEDS: Hydrochlorothiazide 25 MG Tab PO SCH (09:32)
[2022-12-21] MEDS: carBAMazepine 100 MG Tab.Chew CHEW SCH (09:33)
[2022-12-21] MEDS ORDERED: LORazepam 2 MG/ML SDV IVPUSH PRN (11:59)
[2022-12-21] MEDS: amLODIPine 5 MG Tab PO SCH (12:33)
[2022-12-21] MEDS ORDERED: carBAMazepine 100 MG Tab.Chew CHEW SCH (21:00)
[2022-12-22 07:06] LABS: CARBON DIOXIDE,CO2 25.5 mmol/L (21.0-32.0); POTASSIUM,K 3.6 mmol/L (3.5-5.1)
[2022-12-22] MEDS ORDERED: Sodium Chloride 0.9% 1,000 ML IV SCH (07:45)
[2022-12-22] MEDS: Aspirin 81 MG Tab.Chew PO SCH (08:08)
[2022-12-22] MEDS: Gemfibrozil 600 MG Tab PO SCH (08:08)
[2022-12-22] MEDS: Lacosamide 50 MG Tablet PO SCH (08:08)
[2022-12-22] MEDS: carBAMazepine 100 MG Tab.Chew CHEW SCH (08:11)
[2022-12-22] MEDS: Hydrochlorothiazide 25 MG Tab PO SCH (08:14)
[2022-12-22] MEDS: Losartan 50 MG Tab PO SCH (08:19)
[2022-12-22] MEDS: amLODIPine 5 MG Tab PO SCH (11:58)
== END 2022-12-22 15:45 | disposition home or self-care (01) | DRG 101 ==
LOC: MW.ED 22:37 → MW.MS 12-21 00:39
PROVIDERS: ADMIT Internal Medicine; ATTEND Internal Medicine
DX: G40.409 Other generalized epilepsy and epileptic syndromes, not intractable, without status epilepticus (principal); R40.0 Somnolence; I10 Essential (primary) hypertension; E78.00 Pure hypercholesterolemia, unspecified; Z96.653 Presence of artificial knee joint, bilateral; G89.29 Other chronic pain; M54.9 Dorsalgia, unspecified; Z79.82 Long term (current) use of aspirin; Z79.899 Other long term (current) drug therapy; Z90.89 Acquired absence of other organs; Z98.890 Other specified postprocedural states
CPT/HCPCS: 36415; 70450; 70450-26; 80048; 80053; 83735; 84100; 85025; 93005; 96374; 99222; 99239; 99285; 99285-25; A9270-GY; J1953; J2060; J7030; J7060

== ENCOUNTER 2023-05-02 12:29 | Emergency (ER) | payer MEDICARE, OTHER ==
[2023-05-02] MEDS ORDERED: Cephalexin 500 MG Cap PO ONE (13:44)
== END 2023-05-02 14:40 | disposition home or self-care (01) ==
LOC: MW.ED 12:29
DX: S61.401A Unspecified open wound of right hand, initial encounter (principal); E78.00 Pure hypercholesterolemia, unspecified; I10 Essential (primary) hypertension; Z79.82 Long term (current) use of aspirin; Z86.16 Personal history of COVID-19; Z79.899 Other long term (current) drug therapy
CPT/HCPCS: 99283; A9270

== ENCOUNTER 2023-06-09 18:59 | Emergency (ER) | payer MEDICARE ==
[2023-06-09] MEDS ORDERED: Sodium Chloride 0.9% 2.5 ML Syringe FLUSH PRN (20:23)
[2023-06-09] MEDS ORDERED: Sodium Chloride 0.9% 10 ML Syringe FLUSH PRN (20:23)
[2023-06-09 21:12] LABS: BASOPHILS ABSOLUTE AUTO 0.07 K/uL (0.00-0.20); BASOPHILS PERCENT AUTO 0.8 % (0.0-1.0); EOSINOPHILS ABSOLUTE AUTO 0.38 K/uL (0.00-0.45); EOSINOPHILS PERCENT AUTO 4.3 % (0.0-6.0); HEMATOCRIT 37.7 % (37.0-47.0); HEMOGLOBIN 12.8 g/dL (12.0-16.0); IMMATURE GRAN ABSOLUTE AUTO 0.02 K/uL (0.00-0.05); IMMATURE GRAN PERCENT AUTO 0.2 % (0.0-0.4); LYMPHOCYTES ABSOLUTE AUTO 2.14 K/uL (1.00-4.80); LYMPHOCYTES PERCENT AUTO 24.1 % (24.0-44.0); MEAN CORPUSCULAR HEMOGLOBIN 30.1 pg (28.0-32.0); MEAN CORPUSCULAR VOLUME 88.7 fL (83.0-99.0); MEAN PLATELET VOLUME 8.4 fL (9.4-12.3); MONOCYTES ABSOLUTE AUTO 0.81 K/uL (0.00-0.80); MONOCYTES PERCENT AUTO 9.1 % (0.0-8.0); NEUTROPHILS ABSOLUTE AUTO 5.5 K/uL (1.8-7.7); NEUTROPHILS PERCENT AUTO 61.5 % (41.0-71.0); PLATELET COUNT,PLT 336 K/uL (150-400); RED BLOOD CELL COUNT 4.25 M/uL (4.10-5.30); WHITE BLOOD CELL COUNT,WBC 8.87 K/uL (3.9-11.3)
[2023-06-09 21:37] LABS: A/G RATIO 0.8 (0.9-1.6); ALBUMIN 3.7 g/dL (3.4-5.0); BILIRUBIN TOTAL 0.3 mg/dL (0.2-1.0); CALCIUM 9.7 mg/dL (8.5-10.1); CARBON DIOXIDE,CO2 25.4 mmol/L (21.0-32.0); CREATININE 0.7 mg/dL (0.6-1.0); EST CRCL DRUG DOSING (CG) 47.97 mL/min; POTASSIUM,K 4.2 mmol/L (3.5-5.1); PROTEIN TOTAL,TP 8.2 g/dL (6.4-8.2)
== END 2023-06-09 23:01 | disposition home or self-care (01) ==
LOC: MW.ED 18:59
DX: R51.9 Headache, unspecified (principal); I10 Essential (primary) hypertension; Z86.16 Personal history of COVID-19; Z79.899 Other long term (current) drug therapy; Z79.82 Long term (current) use of aspirin
CPT/HCPCS: 36415; 70450; 80053; 84484; 85025; 93005; 99284; J3490; 93010; 99282

== ENCOUNTER 2023-06-27 17:16 | Emergency (ER) | payer MEDICARE ==
[2023-06-27 17:51] LABS: BILIRUBIN,URINE NEGATIVE (NEGATIVE); COLOR,URINE YELLOW; GLUCOSE,URINE NEGATIVE (NEGATIVE); KETONES,URINE NEGATIVE (NEGATIVE); LEUKOCYTE ESTERASE,URINE LARGE (NEGATIVE); NITRITE,URINE NEGATIVE (NEGATIVE); OCCULT BLOOD,URINE LARGE (NEGATIVE); PROTEIN,URINE NEGATIVE (NEGATIVE); UROBILINOGEN,URINE 0.2 EU/dL (<2.0)
[2023-06-27 17:54] LABS: APPEARANCE,URINE SLT CLOUDY
[2023-06-27 18:00] LABS: BACTERIA,URINE 1+ (NEGATIVE); MUCUS,URINE LIGHT (NONE-MOD); SQUAMOUS EPITHELIAL CELLS,UR FEW
[2023-06-27] MEDS ORDERED: Cephalexin 500 MG Cap PO ONE (18:04)
== END 2023-06-27 19:00 | disposition home or self-care (01) ==
LOC: MW.ED 17:16
DX: T83.89XA Other specified complication of genitourinary prosthetic devices, implants and grafts, initial encounter (principal); N30.01 Acute cystitis with hematuria; I10 Essential (primary) hypertension; Z86.16 Personal history of COVID-19; Z79.899 Other long term (current) drug therapy
CPT/HCPCS: 51798; 81001; 87086; 87088; 87186; 99283; A9270

== ENCOUNTER 2023-07-01 21:21 | Emergency (ER) | payer MEDICARE | END 2023-07-01 23:20 | disposition home or self-care (01) | LOC: MW.ED 21:21 | DX: N81.10 Cystocele, unspecified (principal); I10 Essential (primary) hypertension; Z86.16 Personal history of COVID-19; Z79.899 Other long term (current) drug therapy | CPT/HCPCS: 99283; 99284 ==

== ENCOUNTER 2023-07-03 16:45 | Emergency (ER) | payer MEDICARE | END 2023-07-03 20:25 | disposition home or self-care (01) | LOC: MW.ED 16:45 | DX: N81.4 Uterovaginal prolapse, unspecified (principal); I10 Essential (primary) hypertension; Z86.16 Personal history of COVID-19; Z79.899 Other long term (current) drug therapy | CPT/HCPCS: 99283; 99284 ==

== ENCOUNTER 2023-07-04 14:00 | Emergency (ER) | payer MEDICARE | END 2023-07-04 15:25 | disposition home or self-care (01) | LOC: MW.ED 14:00 | DX: N81.4 Uterovaginal prolapse, unspecified (principal); I10 Essential (primary) hypertension; Z79.899 Other long term (current) drug therapy; Z79.82 Long term (current) use of aspirin; Z86.16 Personal history of COVID-19 | CPT/HCPCS: 99283; 99284 ==

== ENCOUNTER 2023-07-05 13:01 | Emergency (ER) | payer MEDICARE ==
[2023-07-05] MEDS ORDERED: Sodium Chloride 0.9% 1,000 ML IV ONE (13:32)
[2023-07-05 14:03] LABS: BASOPHILS ABSOLUTE AUTO 0.03 K/uL (0.00-0.20); BASOPHILS PERCENT AUTO 0.4 % (0.0-1.0); EOSINOPHILS ABSOLUTE AUTO 0.08 K/uL (0.00-0.45); HEMOGLOBIN 11.8 g/dL (12.0-16.0); IMMATURE GRAN ABSOLUTE AUTO 0.05 K/uL (0.00-0.05); IMMATURE GRAN PERCENT AUTO 0.7 % (0.0-0.4); LYMPHOCYTES ABSOLUTE AUTO 1.28 K/uL (1.00-4.80); LYMPHOCYTES PERCENT AUTO 16.8 % (24.0-44.0); MEAN CORPUSCULAR HEMOGLOBIN 30.5 pg (28.0-32.0); MEAN CORPUSCULAR HGB CONC 34.7 g/dL (32.0-36.0); MEAN CORPUSCULAR VOLUME 87.9 fL (83.0-99.0); MEAN PLATELET VOLUME 8.4 fL (9.4-12.3); MONOCYTES ABSOLUTE AUTO 0.45 K/uL (0.00-0.80); MONOCYTES PERCENT AUTO 5.9 % (0.0-8.0); NEUTROPHILS ABSOLUTE AUTO 5.73 K/uL (1.80-7.70); NEUTROPHILS PERCENT AUTO 75.2 % (41.0-71.0); PLATELET COUNT,PLT 290 K/uL (150-400); RED BLOOD CELL COUNT 3.87 M/uL (4.10-5.30); WHITE BLOOD CELL COUNT,WBC 7.62 K/uL (3.9-11.3)
[2023-07-05 14:23] LABS: BLOOD UREA NITROGEN,BUN 26 mg/dL (7.0-18.0); CALCIUM 9.4 mg/dL (8.5-10.1); CARBON DIOXIDE,CO2 26.1 mmol/L (21.0-32.0); CREATININE 1.1 mg/dL (0.6-1.0); GLUCOSE RANDOM 142 mg/dL (74-106)
[2023-07-05 14:28] LABS: CHLORIDE,CL 95 mmol/L (98-107); ESTIMATED GFR 48 mL/min (>60); POTASSIUM,K 3.8 mmol/L (3.5-5.1); SODIUM,NA 130 mmol/L (136-145)
== END 2023-07-05 16:09 | disposition home or self-care (01) ==
LOC: MW.ED 13:01
DX: R53.1 Weakness (principal); T50.905A Adverse effect of unspecified drugs, medicaments and biological substances, initial encounter; I10 Essential (primary) hypertension; I25.2 Old myocardial infarction; Z86.16 Personal history of COVID-19; Z79.82 Long term (current) use of aspirin; Z79.899 Other long term (current) drug therapy; Z86.73 Personal history of transient ischemic attack (TIA), and cerebral infarction without residual deficits
CPT/HCPCS: 36415; 80048; 83605; 85025; 93005; 96360; 99285; J7030; 93010; 99282

== ENCOUNTER 2023-09-06 15:56 | Emergency (ER) | payer MEDICARE, OTHER | END 2023-09-06 18:50 | disposition home or self-care (01) | LOC: MW.ED 15:56 | DX: B02.9 Zoster without complications (principal); I10 Essential (primary) hypertension; Z79.82 Long term (current) use of aspirin; Z79.899 Other long term (current) drug therapy; Z86.16 Personal history of COVID-19 | CPT/HCPCS: 71101-26-LT; 71101-LT; 99283 ==

== ENCOUNTER 2023-09-27 21:21 | Observation (INO) | payer MEDICARE, OTHER ==
[2023-09-27] MEDS ORDERED: Sodium Chloride 0.9% 2.5 ML Syringe FLUSH PRN (21:45)
[2023-09-27] MEDS ORDERED: Sodium Chloride 0.9% 10 ML Syringe FLUSH PRN (21:45)
[2023-09-27 21:49] LABS: BASOPHILS ABSOLUTE AUTO 0.06 K/uL (0.00-0.20); BASOPHILS PERCENT AUTO 0.6 % (0.0-1.0); EOSINOPHILS ABSOLUTE AUTO 0.31 K/uL (0.00-0.45); EOSINOPHILS PERCENT AUTO 3.3 % (0.0-6.0); HEMATOCRIT 37.4 % (37.0-47.0); HEMOGLOBIN 13.1 g/dL (12.0-16.0); IMMATURE GRAN ABSOLUTE AUTO 0.02 K/uL (0.00-0.05); IMMATURE GRAN PERCENT AUTO 0.2 % (0.0-0.4); LYMPHOCYTES ABSOLUTE AUTO 2.15 K/uL (1.00-4.80); LYMPHOCYTES PERCENT AUTO 23.1 % (24.0-44.0); MEAN CORPUSCULAR HEMOGLOBIN 31.8 pg (28.0-32.0); MEAN CORPUSCULAR VOLUME 90.8 fL (83.0-99.0); MEAN PLATELET VOLUME 9.1 fL (9.4-12.3); MONOCYTES ABSOLUTE AUTO 0.65 K/uL (0.00-0.80); NEUTROPHILS PERCENT AUTO 65.8 % (41.0-71.0); PLATELET COUNT,PLT 310 K/uL (150-400); RED BLOOD CELL COUNT 4.12 M/uL (4.10-5.30); WHITE BLOOD CELL COUNT,WBC 9.29 K/uL (3.9-11.3)
[2023-09-27 22:02] LABS: A/G RATIO 0.9 (0.9-1.6); ALBUMIN 3.7 g/dL (3.4-5.0); BILIRUBIN TOTAL 0.3 mg/dL (0.2-1.0); CALCIUM 9.5 mg/dL (8.5-10.1); CREATININE 0.7 mg/dL (0.6-1.0); EST CRCL DRUG DOSING (CG) 49.99 mL/min; POTASSIUM,K 3.8 mmol/L (3.5-5.1); PROTEIN TOTAL,TP 7.7 g/dL (6.4-8.2)
[2023-09-27 22:16] LABS: APPEARANCE,URINE CLEAR; BILIRUBIN,URINE NEGATIVE (NEGATIVE); COLOR,URINE YELLOW; GLUCOSE,URINE NEGATIVE (NEGATIVE); KETONES,URINE NEGATIVE (NEGATIVE); LEUKOCYTE ESTERASE,URINE TRACE (NEGATIVE); NITRITE,URINE NEGATIVE (NEGATIVE); OCCULT BLOOD,URINE NEGATIVE (NEGATIVE); PH,URINE 6.5 (5.0-8.0); PROTEIN,URINE NEGATIVE (NEGATIVE); UROBILINOGEN,URINE 0.2 EU/dL (<2.0)
[2023-09-27 22:25] LABS: BACTERIA,URINE FEW (NEGATIVE); EPITHELIAL CELLS,URINE OCCASIONAL (NONE-FEW); MUCUS,URINE RARE (NONE-MOD); RBC,URINE 0-2 (0-2/HPF); WBC,URINE 0-4 (0-5/HPF)
[2023-09-27] MEDS ORDERED: LORazepam 2 MG/ML SDV ONE (22:59)
[2023-09-27] MEDS ORDERED: LORazepam 2 MG/ML SDV IM ONE (22:59)
[2023-09-28] MEDS ORDERED: Sodium Chloride 0.9% 1,000 ML IV SCH (02:30)
[2023-09-28 06:27] LABS: BASOPHILS ABSOLUTE AUTO 0.07 K/uL (0.00-0.20); BASOPHILS PERCENT AUTO 0.9 % (0.0-1.0); EOSINOPHILS ABSOLUTE AUTO 0.21 K/uL (0.00-0.45); EOSINOPHILS PERCENT AUTO 2.8 % (0.0-6.0); HEMATOCRIT 35.5 % (37.0-47.0); HEMOGLOBIN 12.3 g/dL (12.0-16.0); IMMATURE GRAN ABSOLUTE AUTO 0.03 K/uL (0.00-0.05); IMMATURE GRAN PERCENT AUTO 0.4 % (0.0-0.4); LYMPHOCYTES ABSOLUTE AUTO 2.16 K/uL (1.00-4.80); LYMPHOCYTES PERCENT AUTO 28.7 % (24.0-44.0); MEAN CORPUSCULAR HEMOGLOBIN 31.8 pg (28.0-32.0); MEAN CORPUSCULAR HGB CONC 34.6 g/dL (32.0-36.0); MEAN CORPUSCULAR VOLUME 91.7 fL (83.0-99.0); MEAN PLATELET VOLUME 8.8 fL (9.4-12.3); MONOCYTES ABSOLUTE AUTO 0.73 K/uL (0.00-0.80); MONOCYTES PERCENT AUTO 9.7 % (0.0-8.0); NEUTROPHILS ABSOLUTE AUTO 4.32 K/uL (1.80-7.70); NEUTROPHILS PERCENT AUTO 57.5 % (41.0-71.0); PLATELET COUNT,PLT 256 K/uL (150-400); RED BLOOD CELL COUNT 3.87 M/uL (4.10-5.30); WHITE BLOOD CELL COUNT,WBC 7.52 K/uL (3.9-11.3)
[2023-09-28 06:45] LABS: CALCIUM 9.4 mg/dL (8.5-10.1); CARBON DIOXIDE,CO2 24.8 mmol/L (21.0-32.0); CREATININE 0.6 mg/dL (0.6-1.0); EST CRCL DRUG DOSING (CG) 55.97 mL/min; POTASSIUM,K 3.4 mmol/L (3.5-5.1)
[2023-09-28] MEDS ORDERED: LORazepam 2 MG/ML SDV IV PRN (08:08)
[2023-09-28] MEDS ORDERED: Acetaminophen 325 MG Tab PO PRN (08:08)
[2023-09-28] MEDS ORDERED: Sodium Chloride 0.9% 2.5 ML Syringe FLUSH PRN (08:08)
[2023-09-28] MEDS ORDERED: Sodium Chloride 0.9% 10 ML Syringe FLUSH PRN (08:08)
[2023-09-28] MEDS ORDERED: Ondansetron 4 MG/2 ML SDV IVPUSH PRN (08:08)
[2023-09-28] MEDS ORDERED: levETIRAcetam 500 MG Tab PO SCH (09:00)
[2023-09-28] MEDS: Lacosamide 100 mg tablet PO SCH ×2 (09:51→20:46)
[2023-09-29 06:50] LABS: BASOPHILS ABSOLUTE AUTO 0.07 K/uL (0.00-0.20); BASOPHILS PERCENT AUTO 0.9 % (0.0-1.0); EOSINOPHILS ABSOLUTE AUTO 0.37 K/uL (0.00-0.45); EOSINOPHILS PERCENT AUTO 4.7 % (0.0-6.0); IMMATURE GRAN ABSOLUTE AUTO 0.02 K/uL (0.00-0.05); IMMATURE GRAN PERCENT AUTO 0.3 % (0.0-0.4); LYMPHOCYTES ABSOLUTE AUTO 1.79 K/uL (1.00-4.80); MEAN CORPUSCULAR HEMOGLOBIN 31.5 pg (28.0-32.0); MEAN CORPUSCULAR HGB CONC 34.2 g/dL (32.0-36.0); MEAN PLATELET VOLUME 8.8 fL (9.4-12.3); MONOCYTES ABSOLUTE AUTO 0.78 K/uL (0.00-0.80); NEUTROPHILS ABSOLUTE AUTO 4.76 K/uL (1.80-7.70); NEUTROPHILS PERCENT AUTO 61.1 % (41.0-71.0); PLATELET COUNT,PLT 282 K/uL (150-400); RED BLOOD CELL COUNT 4.13 M/uL (4.10-5.30); WHITE BLOOD CELL COUNT,WBC 7.79 K/uL (3.9-11.3)
[2023-09-29 07:18] LABS: CALCIUM 9.8 mg/dL (8.5-10.1); CARBON DIOXIDE,CO2 24.5 mmol/L (21.0-32.0); CREATININE 0.5 mg/dL (0.6-1.0); EST CRCL DRUG DOSING (CG) 67.16 mL/min; MAGNESIUM 1.8 mg/dL (1.8-2.4); POTASSIUM,K 3.6 mmol/L (3.5-5.1)
[2023-09-29] MEDS ORDERED: Atenolol 25 MG Tab PO SCH (09:00)
[2023-09-29] MEDS ORDERED: Aspirin 81 MG Tab.Chew PO SCH (09:00)
[2023-09-29] MEDS ORDERED: GEMFIBROZIL 600 MG PO SCH (09:00)
[2023-09-29] MEDS ORDERED: Hydrochlorothiazide 12.5 MG Cap PO SCH (09:00)
[2023-09-29] MEDS ORDERED: amLODIPine 5 MG Tab PO SCH (09:00)
[2023-09-29] MEDS ORDERED: Losartan 50 MG Tab PO SCH (09:00)
[2023-09-29] MEDS: Lacosamide 100 mg tablet PO SCH (10:03)
== END 2023-09-29 12:36 | disposition home health service (06) ==
LOC: MW.ED 21:21 → MW.MS 23:44
PROVIDERS: ADMIT Internal Medicine; ATTEND Internal Medicine
DX: R56.9 Unspecified convulsions (principal); R41.82 Altered mental status, unspecified; E78.5 Hyperlipidemia, unspecified; I10 Essential (primary) hypertension; Z79.899 Other long term (current) drug therapy
CPT/HCPCS: 36415; 70450; 70450-26; 71045; 71045-26; 80048; 80053; 81001; 82947; 83735; 84484; 85025; 93005; 93010; 96361; 96365; 96372; 97110-GP; 97161-GP; 97530-GP; 99284; 99285-25; A9270-GY; G0378; J1953; J2060; J3490; J7030; J7060

== ENCOUNTER 2023-12-16 20:41 | Emergency (ER) | payer MEDICARE, OTHER | END 2023-12-16 21:11 | disposition home or self-care (01) | LOC: MW.ED 20:41 | DX: Z76.0 Encounter for issue of repeat prescription (principal); I10 Essential (primary) hypertension; E78.00 Pure hypercholesterolemia, unspecified; Z86.16 Personal history of COVID-19; Z79.82 Long term (current) use of aspirin; Z79.899 Other long term (current) drug therapy | CPT/HCPCS: 99281; 99283 ==

== ENCOUNTER 2024-06-10 02:45 | Emergency (ER) | payer MEDICARE, OTHER ==
[2024-06-10 03:07] LABS: BASOPHILS ABSOLUTE AUTO 0.06 K/uL (0.00-0.20); BASOPHILS PERCENT AUTO 0.8 % (0.0-1.0); EOSINOPHILS ABSOLUTE AUTO 0.12 K/uL (0.00-0.45); EOSINOPHILS PERCENT AUTO 1.6 % (0.0-6.0); HEMATOCRIT 40.3 % (37.0-47.0); HEMOGLOBIN 13.9 g/dL (12.0-16.0); IMMATURE GRAN ABSOLUTE AUTO 0.02 K/uL (0.00-0.05); IMMATURE GRAN PERCENT AUTO 0.3 % (0.0-0.4); LYMPHOCYTES ABSOLUTE AUTO 1.63 K/uL (1.00-4.80); LYMPHOCYTES PERCENT AUTO 21.6 % (24.0-44.0); MEAN CORPUSCULAR HEMOGLOBIN 30.4 pg (28.0-32.0); MEAN CORPUSCULAR HGB CONC 34.5 g/dL (32.0-36.0); MEAN CORPUSCULAR VOLUME 88.2 fL (83.0-99.0); MEAN PLATELET VOLUME 8.7 fL (9.4-12.3); MONOCYTES ABSOLUTE AUTO 0.57 K/uL (0.00-0.80); MONOCYTES PERCENT AUTO 7.5 % (0.0-8.0); NEUTROPHILS ABSOLUTE AUTO 5.16 K/uL (1.80-7.70); NEUTROPHILS PERCENT AUTO 68.2 % (41.0-71.0); PLATELET COUNT,PLT 320 K/uL (150-400); RED BLOOD CELL COUNT 4.57 M/uL (4.10-5.30); WHITE BLOOD CELL COUNT,WBC 7.56 K/uL (3.9-11.3)
[2024-06-10 03:20] LABS: CALCIUM 10.3 mg/dL (8.5-10.1); CARBON DIOXIDE,CO2 27.1 mmol/L (21.0-32.0); CREATININE 0.7 mg/dL (0.6-1.0); EST CRCL DRUG DOSING (CG) 49.03 mL/min; POTASSIUM,K 3.7 mmol/L (3.5-5.1)
[2024-06-10 03:40] LABS: APPEARANCE,URINE SLT CLOUDY; BILIRUBIN,URINE NEGATIVE (NEGATIVE); COLOR,URINE YELLOW; GLUCOSE,URINE NEGATIVE (NEGATIVE); KETONES,URINE TRACE mg/dL (NEGATIVE); LEUKOCYTE ESTERASE,URINE MODERATE (NEGATIVE); NITRITE,URINE NEGATIVE (NEGATIVE); OCCULT BLOOD,URINE SMALL (NEGATIVE); PH,URINE 6.5 (5.0-8.0); PROTEIN,URINE TRACE mg/dL (NEGATIVE); UROBILINOGEN,URINE 0.2 EU/dL (<2.0)
[2024-06-10 04:21] LABS: APPEARANCE,URINE SLT CLOUDY; BILIRUBIN,URINE NEGATIVE (NEGATIVE); COLOR,URINE YELLOW; GLUCOSE,URINE NEGATIVE (NEGATIVE); KETONES,URINE NEGATIVE (NEGATIVE); LEUKOCYTE ESTERASE,URINE SMALL (NEGATIVE); NITRITE,URINE NEGATIVE (NEGATIVE); OCCULT BLOOD,URINE TRACE-INTACT (NEGATIVE); PH,URINE 6.5 (5.0-8.0); PROTEIN,URINE NEGATIVE (NEGATIVE); UROBILINOGEN,URINE 0.2 EU/dL (<2.0)
[2024-06-10 04:29] LABS: BACTERIA,URINE FEW (NEGATIVE); EPITHELIAL CELLS,URINE FEW (NONE-FEW); MUCUS,URINE LIGHT (NONE-MOD); RBC,URINE 0-2 (0-2/HPF)
[2024-06-10] MEDS: Cephalexin 500 MG Cap PO ONE (04:44)
== END 2024-06-10 05:03 | disposition home or self-care (01) ==
LOC: MW.ED 02:45
DX: N30.01 Acute cystitis with hematuria (principal); I10 Essential (primary) hypertension; Z86.16 Personal history of COVID-19; Z79.82 Long term (current) use of aspirin; Z79.899 Other long term (current) drug therapy
CPT/HCPCS: 36415; 70450; 71045; 80048; 81001; 81003; 82947; 83605; 85025; 87086; 99285; A9270